=== PATIENT | male | born 1940 | race Caucasian/White ===

== ENCOUNTER 2017-09-30 22:15 | Inpatient (IN) | payer MEDICARE ==
--- NOTE | 2017-09-30 23:50 | CT ---
CT BRAIN NONCONTRAST: 09/30/17 HISTORY: 77-year-old male with altered mental status (somnolence) and dysarthria. FINDINGS: There is no midline shift or any other mass effect. There is no evidence of acute intracranial hemor rhage, large cortical infarct, obstructive hydrocephalus, or extraaxial fluid collection. The calvar ium is intact. IMPRESSION: No acute intracranial findings. alek [] POS: KAYLYNN
[2017-09-30] MEDS ORDERED: Enoxaparin Sodium 100 MG/ML SYRINGE ONE (23:56)
[2017-10-01] MEDS ORDERED: hydrALAZINE 20 MG/ML VIAL SLOW IVP PRN (00:08)
[2017-10-01 01:03] LABS: Troponin I 0.078 ng/mL (< 0.028)
[2017-10-01 01:40] VITALS: BMI 30.4
[2017-10-01] MEDS: Metoprolol Tartrate 50 MG TAB PO SCH ×2 (04:25→20:18)
--- NOTE | 2017-10-01 05:52 | HP ---
DATE OF ADMISSION: 10/01/2017 PRIMARY CARE PHYSICIAN: Dr. Etienne Vaz. CODE STATUS: FULL CODE. TIME OF EVALUATION: 12:00 a.m. CHIEF COMPLAINT: Left-sided weakness. HISTORY OF PRESENT ILLNESS: This is a 77-year-old male patient. The patient has past medical history of hyperlipidemia, hypertension, surgical history of double bypass 20 years ago, patient does not follow with primary care doctor, the patient is very compliant with medication. Patient came to the hospital after having left-sided weakness and having slurred speech. The symptoms were very brief, no clear triggers, no alleviating factors, symptoms were mild. By the time of my evaluation, no symptoms are present. The patient found to have atrial fibrillation on EKG, which is new for him. REVIEW OF SYSTEMS: Constitutional: No fever, no chills, no generalized weakness. Respiratory: No cough, no sputum production, or shortness of breath. Cardiovascular: No chest pain, no palpitation, no shortness of breath. Gastrointestinal: No nausea, no vomiting, no diarrhea, no abdominal pain. MANAGER CARD: Patient has left-sided weakness that was brief also slurred speech. Genitourinary: No burning with urination. Extremities: No leg swelling. All other systems reviewed were negative except for the findings mentioned above. PAST MEDICAL HISTORY: The patient has a history of hyperlipidemia, hypertension , coronary artery disease, status post CABG 20 years ago. PAST SURGICAL HISTORY: Bypass surgery 20 years ago. PSYCHIATRIC HISTORY: No previous psychiatric history. SOCIAL HISTORY: Drinks socially, rarely. No drugs. Patient smokes cigar weekly. FAMILY HISTORY: Reviewed and noncontributory for current presentation. ALLERGIES: No known drug allergies. MEDICATIONS: Please see medication reconciliation for details. PHYSICAL EXAMINATION: VITAL SIGNS: Blood pressure 145/83, heart rate 86, respiratory rate 18, temperature 98.3, oxygen saturation 94% on room air. GENERAL APPEARANCE: Alert, oriented in no acute distress. HEENT: Eyes normal conjunctivae, moist oral mucosa. Anicteric. NECK: No JVD. RESPIRATORY: Bilateral air entry. No rales, no wheezing. Symmetrical expansion. CARDIOVASCULAR: Normal rate, regular rhythm, no gallop. No edema. ABDOMEN: Soft, normal bowel sounds. MUSCULOSKELETAL: Baseline range of motion and strength. No tenderness. SKIN: Warm intact. No pallor, no rash, no redness. NEUROLOGIC: Baseline sensorium. No evidence of any new focal weakness. Baseline speech. Cranial nerves seems to be intact. PSYCHIATRIC: Good mood, no anxiety, oriented, optimal judgment. LABORATORY DATA: Reviewed. White count 7.3, hemoglobin 14.3, MCV 92, platelet count 186. Coagulation was reviewed. Patient has PT 15.6, INR 1.2, PTT of 29.2. Chemistry was reviewed. The patient has potassium of 4, sodium 140, chloride 103, carbon dioxide 25, anion gap 16, BUN 24, creatinine 1.57, but this is chronic. Patient has previous creatinine in the range of 1.7 to 1.5. GFR was 43. Glucose 140. Troponin 0.078. Beta natriuretic peptide 619. The rest of the labs were basically normal. Brain CT was done and showed no acute intracranial findings. EKG was discussed with performing physician from ER. Patient has atrial fibrillation with controlled ventricular response with a rate of 87 also showing T-wave abnormalities in anterolateral leads, possible left ventricular hypertrophy. ASSESSMENT AND PLAN: 1. New-onset atrial fibrillation. Patient's CHADS-VASc score is 3 points, patient is at [id number] risk of developing stroke, actually has presented with mild TIA symptoms. Patient would benefit from anticoagulation, have an extensive discussion regarding choices for anticoagulation. Patient will make a decision tomorrow what medication will be able to afford in at the point, he could be switched to oral anticoagulants. Cardiology for evaluation, patient already getting echo from stroke protocol. We will follow result, we will treat accordingly. CT head was negative. 2. Transient ischemic attack, patient presented with very short time period of neurological symptoms, they have disappeared. During my examination, neurological exam is totally normal. We will follow stroke protocol, further treatment depending on results. 3. Uncontrolled hypertension on presentation with systolic 145. We will allow permissive hypertension given neurological symptoms, reconcile home medications. 4. History of coronary artery disease status post coronary artery bypass graft. There is a mild elevation in troponin, could be a case of non-ST elevation myocardial infarction type 2 secondary to arrhythmia. Patient already received Lovenox, receive aspirin. He was on beta-blockers at home, we will trend troponins, we will treat accordingly. 5. Hyperlipidemia, low-cholesterol diet is advised. 6. Deep venous thrombosis prophylaxis. Patient is on Lovenox. [facility]
[2017-10-01 06:28] LABS: Troponin I 0.058 ng/mL (< 0.028)
[2017-10-01 08:26] LABS: #Eosinphils 0.2 thou/uL (0.0-0.7); #Lymphocytes 2.1 thou/uL (1.20-3.40); #Monocytes 0.6 thou/uL (0.11-0.59); #Neutrophils 4.2 thou/uL (1.40-6.50); %Basophils 0.5 % (0.0-1.0); %Eosinophils 3.2 % (0.0-10.0); %Lymphocytes 29.4 % (21.0-51.0); %Neutrophils 57.9 % (42.0-75.0); Hemoglobin 13.9 g/dL (14.0-18.0); Mean Corpuscular HGB CONC 33.9 g/dL (32.0-36.0); Mean Corpuscular Hemoglobin 32.7 pg (27.0-31.0); Mean Corpuscular Volume 96.4 fL (78.0-98.0); Mean Platelet Volume 7.8 fL (7.4-10.4); Platelet Count 171 thou/uL (130-400); Red Blood Cell (RBC) Count 4.27 mill/uL (4.70-6.10); White Blood Cell (WBC) Count 7.2 thou/uL (4.8-10.8)
[2017-10-01 08:50] LABS: Anion Gap 12 mmol/L (10-20); BUN (Urea Nitrogen) 22 mg/dL (8.4-25.7); Calc. Creatinine Clearance 65 mL/min (70-130); Calcium 9.3 mg/dL (7.8-10.44); Carbon Dioxide 26 mmol/L (23-31); Chloride 105 mmol/L (98-107); Estimated GFR-MDRD 47; Glucose 98 mg/dL (83-110); Potassium 4.1 mmol/L (3.5-5.1); Sodium 139 mmol/L (136-145)
[2017-10-01] MEDS ORDERED: Valsartan 80 MG TAB PO SCH (09:00)
[2017-10-01] MEDS ORDERED: Aspirin 325 mg Enteric Coated Tablet PO SCH ×2 (09:00)
--- NOTE | 2017-10-01 10:21 | ULT ---
CAROTID ARTERIAL DOPPLER ULTRASOUND: DATE: 10/01/17 COMPARISON: None. HISTORY: Transient ischemic attack. TECHNIQUE: Multiplanar Vega scale sonographic imaging of the arterial structures of the neck obtained with color flow and spectral analysis. FINDINGS: The crankshaft straightener reports that evaluation of the arterial structures is difficult due to vascular tortu osity and the patient's inability to extend the neck. Neither vertebral artery could be visualized/as sessed. Antegrade blood flow noted within the carotid system bilaterally. VESSEL PSV (CM/SEC) EDV (CM/SEC) Right CCA 75 29 Right ICA 42 15 Right ECA 45 8 Left CCA 97 21 Left ICA 69 21 Left ECA 60 10 ICA/CCA ratio is 0.6 on the right and 9.7 on the left. IMPRESSION: 1. No hemodynamically significant stenosis within the carotid system on either side on the basis of velocity criteria. 2. The vertebral arteries could not be assessed on this examination. If clinically warranted, a CT a ngiogram of the neck could be performed for full assessment. POS: KAYLYNN
--- NOTE | 2017-10-01 10:28 | MRI ---
MRI BRAIN WITHOUT CONTRAST: Date: 10/01/17 HISTORY: TIA, altered mental status, somnolence, and dysarthria. FINDINGS: Correlation made with previous day's CT scan. There are a few tiny foci of restricted diffusion in the posterior aspect of the right frontal lobe. There are changes of chronic small vessel ischemic disease in the periventricular white matter. The v entricular size is appropriate and the basilar cisterns are patent. No evidence of hemorrhage, midlin e shift, or abnormal extra-axial fluid collections are seen. IMPRESSION: A few acute tiny lacunar infarctions in the right cerebral hemisphere. POS: ISABELLAH
[2017-10-01] MEDS: Fenofibrate Nanocrystallized 145 MG TAB PO SCH (11:05)
[2017-10-01] MEDS: Ezetimibe 10 MG TAB PO SCH (11:05)
--- NOTE | 2017-10-01 11:13 | PDOC.PN ---
- Subjective Encounter Start Date: 10/01/17 (f/u stroke) Encounter Start Time: 11:11 Subjective: Pt denies any complaints except for being hungry. Denies any -: pain, difficulty moving or speaking. Reports problems from yesterday -: are resolved - Objective Vital Signs & Weight: Vital Signs (12 hours) Temp Pulse Pulse Resp BP BP Pulse Ox 10/01/17 09:20 85 161/90 H 10/01/17 07:55 97.9 F 88 20 10/01/17 07:38 97.4 F L 77 20 153/78 H 95 10/01/17 04:15 97.9 F 88 20 165/79 H 94 L 10/01/17 04:11 150 H 10/01/17 00:34 97.7 F 80 20 170/85 H 95 Pulse Ox 10/01/17 09:20 96 10/01/17 07:55 10/01/17 07:38 10/01/17 04:15 10/01/17 04:11 10/01/17 00:34 Weight Weight 240 lb 4.8 oz I&O: 09/30/17 10/01/17 10/02/17 06:59 06:59 06:59 Intake Total 240 Output Total 800 Balance -560 Result Diagrams: 10/01/17 05:17 10/01/17 05:17 EKG Reviewed by me: Yes (atrial fibrillation with rate 80's, brief 130's) Phys Exam - Physical Examination Constitutional: NAD Respiratory: no wheezing, no rhonchi faint rales left base Cardiovascular: no significant murmur, irregular Gastrointestinal: soft, non-tender, no distention, positive bowel sounds Musculoskeletal: no edema Neurological: non-focal, moves all 4 limbs Psychiatric: normal affect, A&O x 3 Skin: no rash Dx/Plan (1) Stroke Code(s): I63.9 - CEREBRAL INFARCTION, UNSPECIFIED Status: Acute Qualifiers: Laterality of affected vessel: right (2) CKD (chronic kidney disease) Code(s): N18.9 - CHRONIC KIDNEY DISEASE, UNSPECIFIED Status: Chronic Qualifiers: Chronic kidney disease stage: stage 3 (moderate) Qualified Code(s): N18.3 - Chronic kidney disease, stage 3 (moderate) (3) CAD (coronary artery disease) Code(s): I25.10 - ATHSCL HEART DISEASE OF [place] CORONARY ARTERY W/O ANG PCTRS Status: Chronic Qualifiers: Coronary Disease-Associated Artery/Lesion type: bypass graft (4) Atrial fibrillation Code(s): I48.91 - UNSPECIFIED ATRIAL FIBRILLATION Status: Acute (5) Dyslipidemia Code(s): E78.5 - HYPERLIPIDEMIA, UNSPECIFIED Status: Chronic (6) Hypertension Code(s): I10 - ESSENTIAL (PRIMARY) HYPERTENSION Status: Chronic Qualifiers: Hypertension type: essential hypertension Qualified Code(s): I10 - Essential (primary) hypertension - Plan * Stroke based on MRI - tiny lacunar infarcts right cerebral hemisphere - likely from underlying A Fib * Continue aspirin * d/c neuro consult given a fib, very small locations * A Fib - echo, cardiology consult. Pt asking about full anticoagulation and medication - states he does not want any medication that he cant drink alcohol or smoke * htn - continue home meds except for valsartan to allow for permissive htn * cad - continue aspirin, statin, beta-bertin * ckd - stage 3 and chronic by chart review * * dvt prophy -ambulatory * gi prophy - not indicated * code status full * * reviewed plan of care with patient and , no questions or further needs at end of eval.
[2017-10-01 12:39] LABS: Troponin I 0.053 ng/mL (< 0.028)
--- NOTE | 2017-10-01 18:19 | CON ---
DATE OF CONSULTATION: 10/01/2017 CONSULTING PHYSICIAN: Hospitalist Service. IMPRESSION: 1. Cardioembolic stroke into the right frontal region with transient left-sided weakness and slurred speech. 2. Atrial fibrillation. 3. Hypertension. 4. No carotid stenosis. PLAN: 1. Anticoagulation as per Dr. Singh's request. 2. The patient will be discharged home. HISTORY OF PRESENT ILLNESS: Mr. Grove is a 77-year-old gentleman who was sitting smoking a cigar. Al l of a sudden, his left arm started to jerk uncontrollably, could not hang onto the cigar. He starte d having some facial droop on the left and slurred speech. His reports this lasted 10-15 minute s. He went and relaxed for a bit, and then got up and went to the kitchen. The symptoms returned fo r about 10 minutes and then resolved again. He came in for evaluation. His MRI showed evidence of a n acute area of infarction in the right frontal region. His carotids and intracranial vessels were o therwise without any significant stenosis. His EKG showed evidence of atrial fibrillation. PAST MEDICAL HISTORY: Hypertension, coronary artery disease. PAST SURGICAL HISTORY: CABG. SOCIAL HISTORY: Smokes cigars. No alcohol abuse. ALLERGIES: None. FAMILY HISTORY: Noncontributory. REVIEW OF SYSTEMS: No complaint of headache, nausea, vomiting, vertigo, chest pain, shortness of al ath, palpitations. PHYSICAL EXAMINATION: GENERAL: He is a well-nourished elderly man in no distress. VITAL SIGNS: He had a pulse rate of 136 and an irregular pattern. HEENT: Pupils are equal and reactive. Conjunctivae clear. Oropharynx clear. NECK: Supple. EXTREMITIES: No cyanosis. NEUROLOGIC: He is alert and oriented. His speech is fluent and clear. Cranial nerves II-XII are in tact. Motor exam showed symmetric strength. There is no fix or drift. He can walk independently. No abnormal movements were present. IMPRESSION: A 77-year-old gentleman with atrial fibrillation and an event that sounds consistent wit h a cardioembolic event. I agree with your plan of care.
[2017-10-01] MEDS ORDERED: Rivaroxaban 15 MG TAB PO SCH (20:45)
[2017-10-01] MEDS ORDERED: Atorvastatin Calcium 40 MG TAB PO SCH (21:00)
[2017-10-01] MEDS ORDERED: Atorvastatin Calcium 20 MG TAB PO SCH (21:00)
[2017-10-02 05:12] LABS: Anion Gap 14 mmol/L (10-20); BUN (Urea Nitrogen) 18 mg/dL (8.4-25.7); Calc. Creatinine Clearance 71 mL/min (70-130); Calcium 9.6 mg/dL (7.8-10.44); Carbon Dioxide 23 mmol/L (23-31); Chloride 104 mmol/L (98-107); Estimated GFR-MDRD 52; Glucose 95 mg/dL (83-110); Sodium 137 mmol/L (136-145)
--- NOTE | 2017-10-02 05:28 | CON ---
DATE OF CONSULTATION: 10/01/2017 HISTORY OF PRESENT ILLNESS: Mr. Nato Grove is a 77-year-old white male admitted with TIA and stroke symptoms. He has history of coronary artery disease and in 01/2008, underwent off pump, CABG x2 with BARRETT to the LAD and saphenous vein graft to the diagonal. Since that time, he has done fairly well as continued to be followed in the office. He does continue to smoke a pipe and cigars. He has had problems with receiving his metoprolol over the last 3 weeks and actually ran out. He just received a prescription and was restarted on that. He was seen yesterday in the office and was doing well without any significant symptoms. He went home and was apparently smoking a cigar and he had 2 episodes of left-sided weakness and slurred speech. Each episode lasted 10-15 minutes. He came to the ER and was found to be in atrial fibrillation, which is new for him. When he was seen in the office yesterday, his rhythm was regular. He denies any chest discomfort or shortness of breath. PAST MEDICAL HISTORY: Hypertension, hyperlipidemia, coronary artery disease. OPERATIONS: CABG in 2007. MEDICATIONS: Zetia 10 mg daily, aspirin 325 daily, TriLipix 135 daily, metoprolol 75 mg b.i.d., valsartan 160 mg 1/2 tablet daily, simvastatin 40 at bedtime. SOCIAL HISTORY: He continues to smoke a pipe and cigars. He occasionally drinks. FAMILY HISTORY: Unremarkable. REVIEW OF SYSTEMS: Twelve-point review of systems unremarkable. PHYSICAL EXAMINATION: VITAL SIGNS: Blood pressure 183/86, pulse of 102. HEENT: PERRL. NECK: Supple. CHEST: Clear. CARDIAC: S1, S2 normal without any S3, S4 or murmurs. Rhythm is irregularly irregular. Carotid upstrokes normal without bruits. ABDOMEN: Normal bowel sounds, without tenderness, organomegaly. EXTREMITIES: Revealed no clubbing, cyanosis, or edema. NEUROLOGIC: Grossly intact. LABORATORY AND DIAGNOSTIC DATA: EKG reveals atrial fibrillation with nonspecific T-wave changes. Brain MRI reveals a few tiny lacunar infarctions in the right cerebral hemisphere. Carotid Doppler revealed no hemodynamically significant stenosis. Hemoglobin 13.9, hematocrit 41.1, white count 7200, platelets 171,000. INR 1.2. Sodium 140, potassium 4.0, chloride 103, carbon dioxide 25, BUN 24, creatinine 1.57, glucose 140. Troponin I 0.078. BNP 619.0. TSH is normal. Cholesterol 101, triglycerides 121, HDL 25, LDL 52. IMPRESSION: 1. Probable embolic cerebrovascular accident from atrial fibrillation. He was unable to get metoprolol for 3 weeks and this certainly may have precipitated his atrial fibrillation due to beta-bertin withdrawal. 2. Status post coronary artery bypass graft x2. 3. Left ventricular hypertrophy. 4. History of diastolic dysfunction. 5. Aortic valvular sclerosis. 6. Moderate mitral regurgitation. 7. Hypercholesterolemia, under good control. 8. Hypertension. 9. The patient continues to smoke pipes and cigars. 10. Chronic kidney disease. In review of his GFR, it is pretty much always below 50. His creatinine between 1.4-1.6. Recommendations with his current creatinine level and approaching 80, I feel will be best to be on Xarelto since his GFR is always under 50. He would need to be on a lower dose-15 mg daily. Samples will be provided for him, so he can check with this drug plan to see which medication may be more economical. He will be given a dose of Xarelto tonight and then starting tomorrow. Also, his aspirin needs to be reduced to 81 mg daily. Consideration in the future will be given to possible return to sinus rhythm; however, with his embolic events at present time, I would not wish to pursue that for at least 1-2 months. [facility]
[2017-10-02 08:04] VITALS: TEMP 97.3
[2017-10-02] MEDS: Ezetimibe 10 MG TAB PO SCH (08:31)
[2017-10-02] MEDS: Fenofibrate Nanocrystallized 145 MG TAB PO SCH (08:31)
[2017-10-02] MEDS ORDERED: Rivaroxaban 15 MG TAB PO SCH (09:00)
[2017-10-02] MEDS ORDERED: Aspirin 81 mg Enteric Coated Tablet PO SCH (09:00)
[2017-10-02] MEDS ORDERED: Metoprolol Tartrate 100 MG TAB PO SCH (09:00)
[2017-10-02 09:57] VITALS: BP 113/85
--- NOTE | 2017-10-04 21:24 | DIS ---
DATE OF DISCHARGE: 10/02/2017 DISCHARGE DISPOSITION: Home. FOLLOWUP: 1. Follow up with primary care physician, Dr. Vaz, in 1 week. 2. Follow up with Cardiology, Dr. Brayan Singh, in 3-4 weeks. 3. Follow up with Neurology, Dr. Santacruz, in 3-4 weeks. The patient was seen and examined on the day of discharge. Denies any new complaints. No chest pain , shortness of breath, palpitations reported. INPATIENT CONSULTANTS: 1. Cardiology, Dr. Brayan Singh. 2. Neurology, Dr. Santacruz. BRIEF HOSPITAL COURSE: The patient is a 77-year-old male with hypertension, hyperlipidemia, coronary artery disease, who presented to the hospital with left-sided weakness. Please note that the patien t continues to smoke. Please refer to the history and physical dated 10/01/2017 for further details. The patient was admitted to the hospital with the diagnosis of suspected CVA with new onset atrial fi brillation. He was started on anticoagulation. His metoprolol dose was increased to 100 mg twice a day. The patient was evaluated by Cardiology and Neurology. MRI of the brain showed a few acute tin y lacunar infarction in the right cerebral hemisphere. Echocardiogram showed left ventricular ejecti on fraction of 50% to 55% with moderate mitral regurgitation and mild to moderate tricuspid regurgita tion. Carotid Doppler was negative for hemodynamically significant stenosis. The risk not limited t o life threatening bleeding from anticoagulation was discussed with the patient. He stated lilliaman stevenson. DISCHARGE MEDICATIONS: Aspirin 81 mg daily, Xarelto 15 mg daily, Zocor 40 mg daily, valsartan 160 mg daily, fenofibric acid 135 mg daily, Zetia 10 mg daily. The patient was extensively counseled to quit tobacco. Total time coordinating the discharge of this patient was 33 minutes. FINAL DIAGNOSES: 1. Acute cerebrovascular accident, probably secondary to cardioembolic event. 2. New onset atrial fibrillation. The patient has been started on anticoagulation. 3. Hypertension. 4. Coronary artery disease, status post coronary artery bypass graft. 5. Hyperlipidemia. 6. Ongoing tobacco abuse. 7. Chronic normochromic normocytic anemia. 8. Chronic kidney disease, stage 3. 9. Elevated troponins, probably secondary to demand ischemia. 10. Obesity with a BMI of 30.4.
== END 2017-10-02 10:04 | disposition home or self-care (01) | DRG 65 ==
LOC: ERS 22:15 → 2SW 23:40 → OBSVTOIN 10-02 08:20
PROVIDERS: ADMIT Hospitalist; ATTEND Hospitalist
DX: I63.8 Other cerebral infarction (principal); G81.94 Hemiplegia, unspecified affecting left nondominant side; I24.8 Other forms of acute ischemic heart disease; R47.81 Slurred speech; E78.5 Hyperlipidemia, unspecified; I25.10 Atherosclerotic heart disease of native coronary artery without angina pectoris; I48.91 Unspecified atrial fibrillation; F17.210 Nicotine dependence, cigarettes, uncomplicated; I08.1 Rheumatic disorders of both mitral and tricuspid valves; Z95.1 Presence of aortocoronary bypass graft; D64.9 Anemia, unspecified; I12.9 Hypertensive chronic kidney disease with stage 1 through stage 4 chronic kidney disease, or unspecified chronic kidney disease; N18.3 Chronic kidney disease, stage 3 (moderate); E66.9 Obesity, unspecified; Z68.30 Body mass index [BMI] 30.0-30.9, adult; Z79.82 Long term (current) use of aspirin; Z79.899 Other long term (current) drug therapy; E78.00 Pure hypercholesterolemia, unspecified; R29.810 Facial weakness
CPT/HCPCS: 36415; 70450; 70551; 80048; 80061; 84484; 85025; 93005; 93306; 93880; 96372; G8978-GP-CK; G8979-GP-CK; G8980-GP-CK; G8987-GO-CH; G8988-GO-CH; G8989-GO-CH; G9162-GN-CH; G9163-GN-CH; J1650

== ENCOUNTER 2018-01-03 08:27 | Inpatient (IN) | payer MEDICARE ==
[2018-01-03 09:25] LABS: #Lymphocytes 1.5 thou/uL (1.20-3.40); #Monocytes 1.3 thou/uL (0.11-0.59); #Neutrophils 10.2 thou/uL (1.40-6.50); %Basophils 0.3 % (0.0-1.0); %Eosinophils 0.2 % (0.0-10.0); %Lymphocytes 11.4 % (21.0-51.0); %Monocytes 9.8 % (0.0-10.0); %Neutrophils 78.3 % (42.0-75.0); Hemoglobin 8.4 g/dL (14.0-18.0); Mean Corpuscular HGB CONC 33.7 g/dL (32.0-36.0); Mean Corpuscular Hemoglobin 34.4 pg (27.0-31.0); Mean Platelet Volume 8.5 fL (7.4-10.4); Platelet Count 240 thou/uL (130-400); RBC Distribution Width 13.4 % (11.5-14.5); Red Blood Cell (RBC) Count 2.43 mill/uL (4.70-6.10)
[2018-01-03 09:34] LABS: Base Excess-Venous -3.8 mmol/L (0 (+/- 2.5)); Bicarbonate (HCO3v) 21.2 mmol/L (1.0-85.0); CO2 Tension (PvCO2) 37.1 mmHg (41.0-51.0); Hemoglobin - Calc 8.3 g/dL (12.0-18.0); Lactate 5.56 mmol/L (0.50-2.20); O2 Tension (PvO2) 29.9 mmHg (35.0-45.0); Potassium 4.8 mmol/L (3.4-4.7); T. Carbon Dioxide 22.4 mmol/L (1.0-85.0); pH (Venous) 7.365 (7.35-7.45); vO2 Saturation-calc 55.3 % (94-98)
[2018-01-03 09:42] LABS: ALT (SGPT) 474 U/L (8-55); AST (SGOT) 820 U/L (5-34); Albumin 3.5 g/dL (3.4-4.8); Alkaline Phosphatase 35 U/L (40-150); Anion Gap 19 mmol/L (10-20); BUN (Urea Nitrogen) 56 mg/dL (8.4-25.7); Bilirubin, Total 1.5 mg/dL (0.2-1.2); Calc. Creatinine Clearance 0 mL/min (70-130); Calcium 8.7 mg/dL (7.8-10.44); Carbon Dioxide 18 mmol/L (23-31); Chloride 107 mmol/L (98-107); Estimated GFR-MDRD 23; Globulin 2.8 g/dL (2.4-3.5); Glucose 114 mg/dL (83-110); Protein, Total 6.3 g/dL (5.8-8.1); Sodium 139 mmol/L (136-145)
[2018-01-03] MEDS ORDERED: Pantoprazole 40 MG VIAL ONE (09:48)
[2018-01-03 10:05] LABS: CKMB 3.4 ng/mL (0-6.6)
[2018-01-03 10:09] LABS: Troponin I 0.422 ng/mL (< 0.028)
[2018-01-03] MEDS ORDERED: HUM PROTHROMBIN CPLX IV SCH (10:15)
[2018-01-03] MEDS ORDERED: HUMAN PROTHROMBIN COMPLX IV SCH ×2 (10:15→10:30)
[2018-01-03] MEDS ORDERED: [UNRECOGNIZED DRUG - OTHER] IV SCH (10:15)
[2018-01-03 10:20] LABS: Iron 26 ug/dL (65-175); Iron Binding Capacity, Total 395 mcg/dL (261-462); Prothrombin Time 38.6 SEC (12.0-14.7)
[2018-01-03] MEDS ORDERED: ADMIXTURE FEE IV SCH (10:30)
[2018-01-03] MEDS ORDERED: Phytonadione 10 MG/ML AMP SLOW IVP SCH (10:30)
--- NOTE | 2018-01-03 11:11 | RAD ---
SINGLE VIEW OF THE CHEST: COMPARISON: 09/30/17. HISTORY: Shortness of breath and throwing up blood. The patient had a stroke 3 months ago. FINDINGS: A single view of the chest shows an enlarged but stable cardiomediastinal silhouette. The patient is status post sternotomy. There are airspace opacities projecting over the right lung which may repre sent right-sided infiltrates. NO pleural effusion is seen. IMPRESSION: Opacity projecting over the right lung may represent right-sided infiltrates. POS: ISABELLAH
[2018-01-03] MEDS: Piperacillin/Tazobactam 2.25 GM in Sodium Chloride 0.9% 100 ML IVPB SCH ×2 (12:56→20:01)
[2018-01-03] MEDS ORDERED: Sodium Chloride 0.9% 1,000 ML IV SCH (13:15)
[2018-01-03] MEDS ORDERED: Pantoprazole 40 MG VIAL IVP SCH ×2 (13:30→21:00)
[2018-01-03 13:31] LABS: Troponin I 0.492 ng/mL (< 0.028)
[2018-01-03] MEDS: Pantoprazole 80 MG in Sodium Chloride 0.9% 100 ML IVP SCH ×2 (13:34→22:06)
[2018-01-03] MEDS ORDERED: Acetaminophen 500 MG TAB PO PRN (14:21)
[2018-01-03] MEDS ORDERED: Ondansetron HCl/PF 4 MG/2 ML Vial IVP PRN (14:21)
[2018-01-03] MEDS ORDERED: Ondansetron ODT 4 MG TAB PO PRN (14:21)
[2018-01-03] MEDS: Sodium Chloride 0.9% 1,000 ML IV SCH (14:50)
[2018-01-03] MEDS ORDERED: Digoxin 0.5 MG/2 ML AMP SLOW IVP SCH ×2 (15:00→17:45)
[2018-01-03] MEDS ORDERED: Sodium Chloride 0.9% 500 ML IVPB SCH ×2 (16:00→17:45)
[2018-01-03 17:18] LABS: Troponin I 0.565 ng/mL (< 0.028)
[2018-01-03 18:02] LABS: Hemoglobin 8.4 g/dL (14.0-18.0); Platelet Count 181 thou/uL (130-400)
--- NOTE | 2018-01-03 18:06 | CON ---
DATE OF CONSULTATION: 01/03/2018 REASON FOR CONSULTATION: AFib with RVR and melena. PRIMARY DIRECTOR TELEHEALTH: Dr. Brayan Singh. HISTORY OF PRESENT ILLNESS: Mr. Grove is a pleasant 77-year-old gentleman with history of coronary ar godfrey disease, status post bypass surgery 10 years ago who recently presented with melena. He also st ates he has had some hematemesis, although has resolved. His initial hemoglobin was 14 in September. His hemoglobin today was 8.4. He also was found to be in atrial fibrillation with RVR. He was not placed on a diltiazem due to blo od pressure in the 100s. He was placed on digoxin. No current chest pain or pressure. He does have mild palpitations. PAST MEDICAL HISTORY: CAD, hypertension, atrial fibrillation, hyperlipidemia, CAD status post bypass surgery. HOME MEDICATIONS: Include Zetia, Zocor, Trilipix, metoprolol, valsartan and Xarelto. SOCIAL HISTORY: Positive tobacco use, occasional alcohol use. REVIEW OF SYSTEMS: Ten point review of systems is reviewed and as above, otherwise negative. PHYSICAL EXAMINATION: VITAL SIGNS: Blood pressure 106/70, pulse 125, respirations 20. GENERAL: Patient is a pleasant male who is in no acute distress. The patient appears his stated age . NEUROLOGIC: The patient is alert and oriented times 3 with no focal neurologic deficits. HEENT: Sclerae without icterus. Mouth has moist mucous membranes with normal pallor. NECK: No JVD. Carotid upstroke brisk. No bruits bilaterally. LUNGS: Clear to auscultation with unlabored respirations. BACK: No scoliosis or kyphosis. CARDIAC: Irregularly irregular, tachycardic. ABDOMEN: Soft, nontender, nondistended. No peritoneal signs present. No hepatosplenomegaly. No ab normal striae. EXTREMITIES: 2+ femoral and 2+ dorsalis pedis pulses. No cyanosis, clubbing, or edema. SKIN: No gross abnormalities. PERTINENT LABS: Hemoglobin 8.4. White blood cell count 13. Troponin 0.422. IMPRESSION: 1. Atrial fibrillation with rapid ventricular response. 2. Gastrointestinal bleed. 3. Coronary artery disease. 4. Status post bypass surgery. 5. Atrial fibrillation. RECOMMENDATIONS: Mr. Grove's recent diagnosis of atrial fibrillation occurred in September. It is based o n anticoagulation therapy. At this point, we will stop anticoagulation treatment. We will monitor h is hemoglobin closely and transfuse as needed. I will give him a 500 mL bolus of fluids to increase his blood pressure. We would like to start low dose Cardizem IV for heart rate management. He has a previous stroke and is at high risk for a CVA.
--- NOTE | 2018-01-03 18:57 | CON ---
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 He has been healthy most of his life. This is his third hospitalization as per the patient. He has some black tarry stools now for almost 4 days and for 2 days. He complaints of difficulty breathing, though he tells me that he has been coughing some blood. It i s unclear whether it is vomitus or actually sputum. He is a smoker, smokes 2-pack full of tobacco on ce a week and 2 cigars maybe once or twice a week at most. Never smoke substantial cigars at any par ticular time. He said 6 months ago, he could do most things without getting markedly short of breath . For the last 24-48 hours, he was having some difficulty breathing, but no real chest pain, chills, or sweats. PAST MEDICAL HISTORY: Extensively outlined. Recent diagnosis of CVA, recent history of atrial fibri llation, history of hyperlipidemia, coronary artery disease. PAST SURGICAL HISTORY: Bypass 10 years ago. MEDICATIONS: Recent initiation of Xarelto 15 once a day, valsartan 160 a day, Zocor 40 a day, Lopres sor 100 a day, Zetia 100, aspirin 81. ALLERGIES: None. In the ER, he was running into fast SVT and started on Cardizem. He has received in the ER, Kcentra 2681 units, maximum dose according to the pharmacist and vitamin K 10 mg IV. In the ICU, he has had some difficulty breathing. He is on a Cardizem drip. Sats are 95% on 2 liter s, blood pressure 130/80, respiration 20, pulse 120. He is awake, responsive, otherwise. SOCIAL HISTORY: As noted, minimal tobacco. Alcohol none. FAMILY HISTORY: Unremarkable. REVIEW OF SYSTEMS: Ten-point negative. PHYSICAL EXAMINATION: GENERAL: He is awake, alert, responsive without any distress. VITAL SIGNS: Show pulse is 132 and irregular, sats 99% on 2 liters, blood pressure 120/80, respirati on 20. CHEST: Minimal rhonchi or crackles. CARDIAC: Supraventricular tachycardia. ABDOMEN: Distended, soft. EXTREMITIES: No edema. NEUROLOGIC: Awake, alert, responsive, in no distress, having no swelling. LABORATORY DATA: His INR surprisingly 4, his PT is 38. His liver functions markedly elevated. AST 820, ALT is 475. Troponin is elevated. He had normal liver function about 4 months ago at the time when he had his stroke. White count 13,000, H&H is 8 and 24, platelet count is 240. X-RAY FINDINGS: X-ray shows a right-sided pneumonia. Creatinine is elevated at 2.72. This also may be elevated compared to his previous lab report. His creatinine was 1.57 in September when he had the CV A. IMPRESSION: 1. Probably upper gastrointestinal bleed, probably aggravated by Xarelto. 2. Markedly abnormal liver function, etiology unclear, possibly shock liver. 3. Obesity. 4. Renal failure. 5. Pneumonia, probably aspiration. Some minimal tobacco abuse. 6. Supraventricular tachycardia. PLAN: Continue Cardizem. Await input from GI. Pulmonary rae, I have started him on empiric antibi otics for presumed aspiration. Adjust for his renal failure. We will follow. This is a consultation note of 70 minutes, in which 50% spent in direct patient care.
--- NOTE | 2018-01-03 19:31 | CON ---
DATE OF CONSULTATION: 01/03/2018 CHIEF COMPLAINT: Blood in stool. HISTORY OF PRESENT ILLNESS: Mr. Grove is a 77-year-old man who had a stroke back in September. He was sta rted on Xarelto at that time. A week ago he developed worsening dyspnea on minimal exertion. He als o started having black stools about once per daily over the last week. He has had no abdominal pain. He vomited red blood, 2 days ago and then a small amount yesterday. He has had no further vomiting since then. He came to the emergency room with shortness of breath and due to the bleeding. He has been on Xarelto since September as stated above. His last dose was last night. He has no chest pain cur rently. He has had no bowel movements today. His last bowel movement was yesterday. He was given K centra in the emergency room and admitted to the Intensive Care Unit and GI was consulted to evaluate GI bleed. PAST MEDICAL HISTORY: Stroke in 09/2017. He also developed atrial fibrillation and was started on X arelto at that time with a history of hypertension, hyperlipidemia, coronary artery disease. PAST SURGICAL HISTORY: Coronary artery bypass graft. FAMILY HISTORY: Negative for GI malignancies. SOCIAL HISTORY: Rare alcohol. He smokes a cigar occasionally. No drugs. ALLERGIES: No known drug allergies. MEDICATIONS: Prior to admission include valsartan, simvastatin, Xarelto, metoprolol, fenofibric acid as that may be aspirin 81 mg daily. In the hospital, he has been given Protonix 40 mg IV push and s tarted on Zosyn and diltiazem. REVIEW OF SYSTEMS: Negative x10 systems reviewed except as stated in history of present illness. PHYSICAL EXAMINATION: VITAL SIGNS: Temperature is 97.3, pulse 89, blood pressure 136/70, oxygen saturations 93% on room ai r. GENERAL: He is in no acute distress. He is alert and oriented x3. HEENT: Eyes have no scleral icterus. Oropharynx is clear, without lesions. NECK: No cervical or supraclavicular lymphadenopathy. LUNGS: Clear to auscultation bilaterally. HEART: Tachycardic S1, S2. ABDOMEN: Soft, nontender, nondistended. Bowel sounds are present. Rectal exam reveals melenic stoo l in the rectal vault. EXTREMITIES: No lower extremity edema. NEUROLOGIC: Cranial nerves are grossly intact. LABORATORY DATA: White blood cell count 13.0, hemoglobin is 8.4 down from 13.9 in September, platelets 24 0. INR is 4.0 with a PTT of 48. Creatinine is 2.72 up from baseline of 1.33 back in September. Iron 26, TIBC 395, ferritin 159, bilirubin 1.5, AST 820, ALT 474, alkaline phosphatase 35. Previously, his liver tests were normal. Albumin 3 .5. IMPRESSION: 1. Upper gastrointestinal bleed with hematemesis and melena. He has had one melenic stool per day o arlette the last week and then 2 episodes of hematemesis. One of them was yesterday and one was the day before. He has had no actual overt blood loss today; however, he does have melenic stool in the rect al vault. He is being transfused and his hemodynamic status appears to be improving. He is alert an d oriented now. 2. Atrial fibrillation with rapid ventricular response. 3. Acute renal failure. 4. Ischemic hepatopathy with a sharp rise in the transaminases with AST twice the ALT. 5. Coagulopathy secondary to Xarelto. His last dose was last night. His INR is elevated at 4.0. G iven the acute renal failure, this will take longer to metabolize. 6. Anemia of acute blood loss. RECOMMENDATIONS: 1. Transfusion. 2. Proton pump inhibitor drip. 3. Monitor in ICU. 4. We will give him time to metabolize the Xarelto. He does not appear to be bleeding extremely armen skly given that he has had one black bowel movement per day for the last week and no hematemesis or m grace output today. I will plan upper endoscopy in 2-3 days. Given that with his acute renal failur e and significant elevation of the INR with the Xarelto, I would lean towards 3 days with likely perf orming endoscopy on Thursday. If he shows more rapid signs of upper bleeding, then we could potenti ally perform upper endoscopy sooner. 5. I will check an acute viral hepatitis panel. However, I think this is ischemic hepatopathy.
--- NOTE | 2018-01-03 20:26 | HP ---
DATE OF ADMISSION: 01/03/2018 PRIMARY CARE PROVIDER: Dr. Vaz. PRIMARY ROLL CHANGER: Dr. Brayan Singh. CHIEF COMPLAINT: Vomiting blood and blood in the stool. HISTORY OF PRESENT ILLNESS: This is a 77-year-old male, who presents to [facility] Emergency Department complaining of approximately 1-week history of black stools with vomiting bloo d over the last 2 days. The patient admits to taking Xarelto, which he was prescribed after an episo de of atrial fibrillation and a CVA in 09/2017. The patient states he has been compliant with his ch ronic medication regimen, but had been noticing blood in his stool for approximately 1 week. The pat ient had progressive weakness and had difficulty getting up out of a chair or out of the bed, experie ncing dizziness and feel like he was going to fall. The patient admits to some abdominal discomfort with the black stool; however, this is now resolved. The patient denied any recent trauma, injury, t ravel history, diarrhea or fever. The patient denies any history of GI bleeds or gastric ulcers. In the emergency department, the patient underwent general evaluation with a hemoglobin showing a value of 8.4 down from previous measured value of 14 on 10/01/2017. The patient received Kcentra, intrave nous Protonix, diltiazem, and intravenous normal saline x1 liter. The patient was also noted with co ncomitant atrial fibrillation with rapid ventricular response with heart rates in the 120s to 130s. The patient was transferred to the critical care unit for further evaluation. PAST MEDICAL HISTORY: 1. Atrial fibrillation, on chronic Xarelto therapy. 2. History of ischemic cerebrovascular accident without residual deficit. 3. Hypertension. 4. Hyperlipidemia. 5. Tobacco use. 6. Coronary artery disease. PAST SURGICAL HISTORY: Status post coronary artery bypass grafting. CURRENT MEDICATIONS: 1. Ezetimibe 10 mg p.o. daily. 2. Fenofibric acid 135 mg p.o. daily. 3. Zocor 40 mg p.o. daily. 4. Valsartan 160 mg p.o. daily. 5. Enteric-coated aspirin 81 mg p.o. daily. 6. Lopressor 100 mg p.o. b.i.d. 7. Xarelto 15 mg p.o. daily. ALLERGIES: No known drug allergies. FAMILY HISTORY: No inheritable diseases per patient report. SOCIAL HISTORY: The patient resides in [place], [place]. . Smokes cigars weekly. Occasional a lcohol use, no illicit drug use. REVIEW OF SYSTEMS: The following complete review of systems was negative, unless otherwise mentioned in the HPI or below: Constitutional: Weight loss or gain, ability to conduct usual activities. Sk in: Rash, itching. Eyes: Double vision, pain. ENT/Mouth: Nose bleeding, neck stiffness, pain, te nderness. Cardiovascular: Palpitations, dyspnea on exertion, orthopnea. Respiratory: Shortness of breath, wheezing, cough, hemoptysis, fever or night sweats. Gastrointestinal: Poor appetite, abdom inal pain, heartburn, nausea, vomiting, constipation, or diarrhea. Genitourinary: Urgency, frequenc y, dysuria, nocturia. Musculoskeletal: Pain, swelling. Neurologic/Psychiatric: Anxiety, depressio n. Allergy/Immunologic: Skin rash, bleeding tendency. Otherwise negative except as stated per HPI. PHYSICAL EXAMINATION: VITAL SIGNS: Currently, blood pressure 106/71, pulse 137, respiratory rate 31, temperature 98.2 degr ees Fahrenheit, O2 saturation 95% on 2 liters per minute by nasal cannula. GENERAL APPEARANCE: This is a 77-year-old male, alert and oriented x3, pleasant, pale appe aring, in mild respiratory distress. HEENT: Pupils are equal, round, and reactive to light and accommodation. Extraocular muscles are in tact. No scleral icterus, no conjunctival injection. Nares patent. OP is clear. Teeth in fair rep air. NECK: Supple, no cervical adenopathy, no thyromegaly, no carotid bruits, no JVD appreciated. Cervic al spine with full active and passive range of motion. No meningeal signs appreciated. CHEST: Diminished breath sounds in the bases bilaterally. CARDIOVASCULAR: S1, S2 with irregular rate and rhythm with tachycardia. ABDOMEN: Obese, soft, nontender, nondistended. Landmarks are difficult to palpate due to patient's body habitus. No rebound or guarding noted. EXTREMITIES: Warm and dry with fair turgor. No clubbing, cyanosis or asymmetric edema appreciated. Pulses palpable distally at the dorsalis pedis, posterior tibial, and popliteal arteries bilaterall y. Capillary refill less than 2 seconds. NEUROLOGIC: Cranial nerves II-XII are grossly intact. No focal or lateralizing signs appreciated. The patient not observed ambulatory during this exam. PERTINENT LABORATORY AND X-RAY FINDINGS: Sodium 143, potassium 4.8, chloride 109, CO2 of 18, BUN 56, creatinine 2.72, estimated GFR of 23. Venous lactic acid 5.56. Serum iron level 26, TIBC 395, ferr itin 160, AST 820, ALT 474, alkaline phosphatase 35. Troponin I ranged between 0.422 to 0.492. CBC showed a white blood cell count of 13.0, hemoglobin 8.4, hematocrit 25, MCV 102, platelet count 240 w ith 78% neutrophils. PT 38.6, INR 4.0, PTT 48.5. Portable chest x-ray dated 01/03/2018 showed incre ased opacity of the right lung. EKG dated 01/03/2018 by my interpretation shows atrial fibrillation with rapid ventricular response, heart rates in the 120s. Normal R-wave progression noted in the pre cordial leads. Normal axis. ST-T wave changes noted in the lateral and inferior leads. ASSESSMENT AND PLAN: 1. Acute gastrointestinal bleed. The patient will be admitted to the critical care unit. We will c ontinue Protonix 40 mg IV q.12 hours. We will consult GI Service for further evaluation after stabil ization. Avoid anticoagulation and Xarelto. N.p.o. except for medications and sips of water. We wi ll continue intravenous normal saline at 100 mL per hour. Continue serial H&H monitoring. 2. Acute blood loss anemia secondary to #1. 3. Status post transfusion of 1 unit of packed red blood cells. Continue serial H&H monitoring and transfuse as clinically indicated. Transfuse 1 unit of fresh frozen plasma. 4. Hypotension. Suspect multifactorial given patient's acute blood loss. We will continue IV fluid hydration. Avoid antihypertensive medications. Serial blood pressure monitoring in the critical ca re unit. 5. Atrial fibrillation with rapid ventricular response. Suspect multifactorial given patient's acut e blood loss anemia and history of atrial fibrillation. We will initiate digoxin 0.25 mg IV x1 now, then 0.125 mg IV daily. Hold Cardizem infusion due to hypotension. Continue to manage underlying et iology as outlined in #1 and #2. Consult Cardiology service. 6. Acute kidney injury. Avoid nephrotoxic agents and contrast media. Continue IV fluids as outline d previously. Serial creatinine monitoring. 7. Elevated troponin I. Suspect demand ischemia of the myocardium in the context of atrial fibrilla tion with rapid ventricular response. Continue serial monitoring. Cardiology consultation. 8. Transaminitis. Suspect liver shock in conjunction with acute GI bleed in addition to hypotension . We will continue to trend LFTs. No current evidence to suggest obstructive process. 9. Prophylaxis. Sequential compression devices while in bed. Protonix 40 mg IV q.12 hours. 10. Code status is FULL. Surrogate medical decision maker is patient's spouse.
[2018-01-03] MEDS ORDERED: Furosemide 40 MG/4 ML VIAL ONE (23:19)
[2018-01-03] MEDS ORDERED: Furosemide 40 MG/4 ML VIAL SLOW IVP SCH (23:30)
[2018-01-03 23:34] LABS: Actual Bicarbonate (HCO3a) 14.1 mEq/L (22-28); Base Excess (BEa) -15.1 mEq/L (-2.0 to +3.0); CO2 Tension 47.9 mmHg (35.0-45.0); Calcium, Ionized 1.12 mmol/L (1.12-1.30); Carboxyhemoglobin (COHb) 1.5 gm% (0.0-3.0); Hemoglobin (Hb) 9.8 g/dL (14.0-18.0); Potassium - ABG Lab 5.47 mmol/L (3.70-5.30)
[2018-01-03 23:40] LABS: pH, Arterial 7.09 (7.35-7.45)
[2018-01-03 23:41] LABS: ALV-art Gradient 529.125 (0-20); Puncture Site RRA
[2018-01-04] MEDS: Sodium Chloride 0.9% 1,000 ML IV SCH ×3 (02:26→22:26)
[2018-01-04 05:12] LABS: INR-International Normal Ratio 2.4; PTT 39.1 SEC (22.9-36.1); Prothrombin Time 26.1 SEC (12.0-14.7)
[2018-01-04 05:19] LABS: Anion Gap 22 mmol/L (10-20); BUN (Urea Nitrogen) 65 mg/dL (8.4-25.7); Calc. Creatinine Clearance 29 mL/min (70-130); Calcium 8.4 mg/dL (7.8-10.44); Carbon Dioxide 11 mmol/L (23-31); Chloride 113 mmol/L (98-107); Estimated GFR-MDRD 18; Glucose 155 mg/dL (83-110); Potassium 5.3 mmol/L (3.5-5.1); Sodium 141 mmol/L (136-145)
[2018-01-04 05:27] LABS: Hemoglobin 8.6 g/dL (14.0-18.0); Mean Corpuscular Hemoglobin 33.1 pg (27.0-31.0); Mean Platelet Volume 9.2 fL (7.4-10.4); Platelet Count 209 thou/uL (130-400); RBC Distribution Width 14.6 % (11.5-14.5); Red Blood Cell (RBC) Count 2.61 mill/uL (4.70-6.10); White Blood Cell (WBC) Count 15.2 thou/uL (4.8-10.8)
[2018-01-04 05:28] LABS: Hypochromia SLIGHT = 6-15 cells (100X) (0-5/hpf); Lymphocytes 5 % (21-51); MDiff Complete? YES; Monocytes 3 % (0-10); Neutrophil 92 % (42-75); PLT Morphology Comment Appears Adequate
[2018-01-04] MEDS: Piperacillin/Tazobactam 2.25 GM in Sodium Chloride 0.9% 100 ML IVPB SCH ×3 (05:36→22:17)
[2018-01-04 05:40] LABS: HBSAg Index 0.21 S/CO (0-0.99); Hep A IgM AB Non-Reactive (NonReactive); Hep A IgM S/CO 0.08 S/CO (0-0.79); Hep B Surf Ag Non-Reactive S/CO (NonReactive); Hep C IgG Ab Non-Reactive (NonReactive); Hepatitis B Core IGM Abs Non-Reactive (NonReactive)
--- NOTE | 2018-01-04 07:31 | RAD ---
AP VIEW OF THE CHEST: INDICATION: History of intubation. COMPARISON: Prior study dated 01/03/18. IMPRESSION: Worsening opacification of the right lung and left lower lobe may reflect worsening edema or pneumoni a. Oxygen tubing overlies the left upper chest wall. No pneumothorax is evident. No acute osseous abnormality is noted. POS: BH
--- NOTE | 2018-01-04 07:59 | PRG ---
DATE OF SERVICE: 01/04/2018 He is a 77-year-old gentleman who was placed on noninvasive ventilation last night with progressive r espiratory failure. PHYSICAL EXAMINATION: VITAL SIGNS: His blood pressure is 90/58, pulse 130 irregular, sats 100%. His I's and O's are 2466 in, 650 out. GENERAL: Awake, responsive, complaining of dry mouth. CHEST: Chest reveals bilateral rhonchi and crackles, I did not hear any wheezing. CARDIAC: SVT. ABDOMEN: Soft. LABORATORY: H&H 8 and 27, platelet count is 209. His INR is 2.4. His pO2 is 124, pCO2 46.570. BUN and creatinine 65 and 3.3. Troponin is 0.56. IMPRESSION: 1. Respiratory failure. 2. Right-sided pneumonia, probably aspiration. 3. Gastrointestinal bleed. 4. Atrial fibrillation. 5. Renal failure. PLAN: Echo is being ordered. Continue supportive care, continue noninvasive ventilation. If condit ion gets worse he is going to be intubated. This is a one-half hour critical care time.
[2018-01-04] MEDS: Pantoprazole 80 MG in Sodium Chloride 0.9% 100 ML IVP SCH ×2 (08:00→18:34)
[2018-01-04] MEDS: Digoxin 0.5 MG/2 ML AMP SLOW IVP SCH (08:18)
--- NOTE | 2018-01-04 10:49 | CON ---
DATE OF CONSULTATION: 01/04/2018 HISTORY OF PRESENT ILLNESS: Mr. Grove is a 77-year-old white male who was admitted for an upper GI bl eed. He has been on Xarelto in the past and this has been discontinued. We are now being consulted for his acute kidney injury. Please note the patient has received volume repletion. He has received Kcentra as well as normal saline x1 liter. Currently, he is on maintenance IV. He is also on salt poor albumin. We were referred to further evaluate his acute kidney injury. REVIEW OF SYSTEMS: Positive for hematemesis. Positive for melena. Positive for cough. No shortnes s of breath, no syncopal episode, no productive cough, no fever or chills. Decreased appetite, decre ased energy level. No abdominal pain, no headache, no joint pains, no new skin rash, no dysuria, no urinary frequency. MEDICATIONS: Salt poor albumin 5% - 12.5 grams IV daily, DuoNeb q.4 hours p.r.n., diltiazem drip as adjusted, Levaquin 750 mg q.2 days, Solu-Medrol 40 mg IV b.i.d., Zofran p.r.n., Protonix 80 mg daily, Zosyn 2.25 grams IV q.8 hours, normal saline 100 mL per hour. PAST MEDICAL HISTORY: 1. Status post cerebrovascular accident. 2. History of atrial fibrillation. 3. Coronary artery disease. 4. Status post upper gastrointestinal bleed, recent diagnosis. PAST SURGICAL HISTORY: 1. Status post cardiac catheterization. 2. Status post coronary artery bypass graft. SOCIAL HISTORY: Patient is and lives in [place]. One child. 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 Education: Master's degree in theology. Smoke cigars and pipe for several years. Occasional alcohol. Status post blood transfusion. No IV drug abuse. ALLERGIES: None. TRAUMA: None. IMMUNIZATIONS: He is not up to date. HOSPITALIZATIONS: Please see past medical history. FAMILY HISTORY: No family history of end-stage renal disease. PHYSICAL EXAMINATION: VITAL SIGNS: Blood pressure is currently at 88/58, heart rate is 132, respiratory rate 12, pulse ox 100%. GENERAL: Patient is awake, supine, comfortable, obese. SKIN: Adequate turgor. HEENT: Pale conjunctivae, anicteric sclerae. NECK: No neck mass, no carotid bruits, no JVD. CHEST: No deformities. LUNGS: Decreased breath sounds. HEART: Tachycardic, no murmur, no gallops or rubs. ABDOMEN: Globular, soft, nontender. EXTREMITIES: No edema. NEUROLOGIC: Moving all extremities. No tremors, no asterixis, no ataxia. LABORATORY DATA: Of 01/04/2018, white count 15.2, hemoglobin 8.6. Sodium 141, potassium 5.3, chlori de 113, carbon dioxide 11, BUN 65, creatinine 3.33, glucose 155, calcium is 8.4. Troponin I 0.565. On 01/03/2018, creatinine 2.69. ASSESSMENT AND PLAN: 1. Acute kidney injury - consider a hemodynamically mediated renal dysfunction secondary to his jaspal rointestinal bleed. The possibility of a superimposed acute tubular necrosis remains. For this reas on, we will review urinalysis and urine chemistries with this patient. Please note a renal ultrasoun d has also been ordered. For the moment, agree with current management. Continue to optimize hemody namics. P.r.n. blood transfusion. Continue normal saline. Should the metabolic acidosis worsen, we could consider placing this patient on isotonic bicarbonate. We will recheck a base met again later tonight. 2. Gastrointestinal bleed - continue supportive care, p.r.n. blood transfusion for possible upper GI endoscopy. Please note, the patient's Xarelto has been discontinued. Valsartan is also on hold.
[2018-01-04] MEDS ORDERED: Digoxin 0.5 MG/2 ML AMP SLOW IVP SCH ×3 (11:15→17:30)
[2018-01-04] MEDS: Sodium Chloride 0.9% 500 ML IV SCH ×2 (14:00→15:00)
--- NOTE | 2018-01-04 14:14 | PRG ---
DATE OF SERVICE: 01/04/2018. SUBJECTIVE: Mr. Grove has no abdominal pain. He complains of thirst. He has a Ventimask in place an d otherwise has no acute complaints. PHYSICAL EXAMINATION: VITAL SIGNS: Temperature 98.4, pulse 130s, blood pressure 90s/50s. GENERAL: He is in no acute distress. LUNGS: Clear to auscultation bilaterally. HEART: Tachycardic, no murmur. ABDOMEN: Soft, nontender, nondistended. Bowel sounds are present. EXTREMITIES: No lower extremity edema. IMPRESSION: 1. Upper gastrointestinal bleed, presenting with melena and hematemesis. He has had no bowel moveme nt since admission. Bleeding appears to have stopped for now. He received 1 unit transfusion yester day. His hemoglobin is stable at 8.6. 2. Toxicity from Xarelto with supratherapeutic INR in the setting of acute renal failure. I will ta ke longer for him to metabolize the Xarelto. It does not appear to be ongoing bleeding at this point . We can plan upper endoscopy, likely on Thursday assuming his respiratory and cardiac status have improved at that point. 3. Atrial fibrillation with rapid ventricular response. 4. Ischemic hepatopathy. RECOMMENDATIONS: 1. Proton pump inhibitor drip. Again, if there is no further bleeding tomorrow and his hemoglobin i s stable, he can likely change this to a q.12 hours dosing. 2. Start clear liquids today and advance his diet as he tolerates tomorrow. 3. Again, we will plan EGD when his heart rate and respiratory status have improved and after he has had more time for the Xarelto to metabolize.
--- NOTE | 2018-01-04 15:16 | ULT ---
RENAL ULTRASOUND: History: Renal failure. FINDINGS: Real-time imaging of the right and left kidneys were performed. Right kidney measures 11.3 and left k idney 11.6 cm in size. In the midpole region of the right kidney is a 4.5 cm cyst and on the left nelly e there is an upper pole cyst measuring in the 3 cm range. Bladder was empty at the time of this exam ination. There is a Horta catheter present. IMPRESSION: No evidence of obstruction of either kidney. Bilateral renal cysts. POS: KAYLYNN
[2018-01-04 15:26] LABS: Bilirubin Negative (Negative); Blood, Urine Large (Negative); Clarity TURBID (Clear); Glucose, Urine (Dipstick) Negative (Negative); Leukocyte Moderate (Negative); Nitrite Negative (Negative); Protein, Urine (Dipstick) 100 mg/dL (Neg-Trace); Specific Gravity, Urine 1.023 (1.002-1.036); pH, Urine 5.5 (5.0-9.0)
[2018-01-04 15:35] LABS: Bacteria/HPF None Seen HPF (None Seen)
[2018-01-04 15:37] LABS: Pathc Cast-AUWi Flag 11.71 (0-2.49); Yeast-AUWi Flag 1240.5 (0-25.0)
[2018-01-04 15:54] LABS: RBC/HPF GREATER THAN 50-TNTC HPF (0-3)
[2018-01-04 15:55] LABS: Hyaline Casts/LPF 0-3 HYALINE CAST LPF (0-3 Hyaline); Other Casts/LPF None Seen LPF (0-3 Hyaline); Yeast-All Forms None Seen HPF (None Seen)
[2018-01-04 15:56] LABS: Crystals/HPF 2+ URIC ACID HPF (Negative)
[2018-01-04] MEDS ORDERED: Digoxin 0.5 MG/2 ML AMP ONE (16:41)
[2018-01-04] MEDS ORDERED: Furosemide 40 MG/4 ML VIAL ONE (16:42)
[2018-01-04] MEDS ORDERED: Furosemide 40 MG/4 ML VIAL SLOW IVP SCH (16:45)
[2018-01-04 18:53] LABS: Anion Gap 16 mmol/L (10-20); BUN (Urea Nitrogen) 70 mg/dL (8.4-25.7); Calc. Creatinine Clearance 32 mL/min (70-130); Calcium 8.3 mg/dL (7.8-10.44); Carbon Dioxide 19 mmol/L (23-31); Chloride 113 mmol/L (98-107); Estimated GFR-MDRD 20; Glucose 130 mg/dL (83-110); Potassium 4.5 mmol/L (3.5-5.1); Sodium 143 mmol/L (136-145)
--- NOTE | 2018-01-04 20:43 | PDOC.PN ---
- Subjective Encounter Start Date: 01/04/18 Encounter Start Time: 20:10 Subjective: f/u for acute GI bleed, A-fib RVR and acute hypoxic resp failure. -: Remains in A-fib on current Cardizem gtt. Hgb stable in 8 range. -: BiPAP NIMV currently. No new complaints. - Objective Resuscitation Status: Resuscitation Status FULL:Full Resuscitation MAR Reviewed: Yes Vital Signs & Weight: Vital Signs (12 hours) Temp Pulse Pulse Resp BP Pulse Ox 01/04/18 19:14 99.0 F 107 H 27 H 108/55 L 100 01/04/18 19:00 99.0 F 100 01/04/18 18:45 112 H 01/04/18 18:44 108 H 24 H 100 01/04/18 18:07 110 H 01/04/18 16:45 99.1 F 146 H 122 H 31 H 101/57 L 01/04/18 16:28 98.4 F 126 H 34 H 111/72 01/04/18 16:00 99.1 F 01/04/18 14:15 100 01/04/18 14:12 146 H 28 H 100 01/04/18 12:47 146 H 01/04/18 12:00 98.4 F 01/04/18 10:15 116 H 24 H 100 01/04/18 10:00 99 F Weight Weight 247 lb 5.738 oz Most Recent Monitor Data Heart Rate from ECG 113 NIBP 108/55 NIBP BP-Mean 72 Respiration from ECG 21 SpO2 100 I&O: 01/03/18 01/04/18 01/05/18 06:59 06:59 06:59 Intake Total 2466 931.4 Output Total 660 1195 Balance 1806 -263.6 Result Diagrams: 01/04/18 15:15 01/04/18 18:22 Additional Labs: Laboratory Tests 01/03/18 01/03/18 01/03/18 09:08 09:10 12:56 WBC 13.0 H Hgb 8.4 L INR 4.0 Potassium Carbon Dioxide BUN Creatinine Lactic Acid 4.0 H Hepatitis A IgM Ab Hep Bs Antigen Hep B Core IgM Ab Hepatitis C Antibody 01/03/18 01/04/18 01/04/18 17:51 04:27 04:27 WBC Hgb 8.4 L INR 2.4 Potassium 5.3 H Carbon Dioxide 11 L BUN 65 H Creatinine 3.33 H Lactic Acid Hepatitis A IgM Ab Hep Bs Antigen Hep B Core IgM Ab Hepatitis C Antibody 01/04/18 01/04/18 04:27 04:27 WBC Hgb 8.6 L INR Potassium Carbon Dioxide BUN Creatinine Lactic Acid Hepatitis A IgM Ab Non-Reactive Hep Bs Antigen Non-Reactive Hep B Core IgM Ab Non-Reactive Hepatitis C Antibody Non-Reactive Radiology Reviewed by me: Yes (PCXR - worsening edema bilat; Renal sono - negative for obstruction) EKG Reviewed by me: Yes (Tele - A-fib in 110's) Phys Exam - Physical Examination alert, nods and states a few words, BiPAP mask in place HEENT: PERRLA, sclera anicteric, oral pharynx no lesions Neck: no nodes, no JVD, supple, full ROM diminished in bases tachycardic Cardiovascular: no significant murmur, irregular Gastrointestinal: soft, non-tender, no distention, positive bowel sounds Musculoskeletal: pulses present, edema present Neurological: normal sensation, moves all 4 limbs Psychiatric: normal affect, A&O x 3 Skin: normal turgor, cap refill <2 seconds Deviation from normal: Horta with gross hematuria Dx/Plan (1) Acute GI bleeding Code(s): K92.2 - GASTROINTESTINAL HEMORRHAGE, UNSPECIFIED Status: Acute Comment: Suspect upper source given hematemesis, melena, plan for endoscopy in 48h if hemodynamically stabilizing, serial H/H, avoid anticoagulation and NSAIDs (2) Acute blood loss anemia Code(s): D62 - ACUTE POSTHEMORRHAGIC ANEMIA Status: Acute Comment: s/p 1u PRBC's, H/H stable currently, continue serial H/H trending, see #1 above (3) Acute respiratory failure with hypoxia Code(s): J96.01 - ACUTE RESPIRATORY FAILURE WITH HYPOXIA Status: Acute Comment: BiPAP NIMV, Duonebs, Solumedrol, Zosyn (4) Atrial fibrillation with RVR Code(s): I48.91 - UNSPECIFIED ATRIAL FIBRILLATION Status: Acute Comment: Rate variable, continue Diltiazem gtt, Digoxin IV (5) HAYLEE (acute kidney injury) Code(s): N17.9 - ACUTE KIDNEY FAILURE, UNSPECIFIED Status: Acute Comment: Suspect multifactorial given hypotension, hypoperfusion, GI bleed, avoid nephrotoxic meds and limit contrast exposure (6) Hypotension Status: Acute Comment: Persistent, likely multifactorial given the above conditions, hold all antihypertensives, IVF's low-volume (7) Transaminitis Code(s): R74.0 - NONSPEC ELEV OF LEVELS OF TRANSAMNS & LACTIC ACID DEHYDRGNSE Status: Acute Comment: Due to liver shock, serial LFT's (8) Demand ischemia of myocardium Code(s): I24.8 - OTHER FORMS OF ACUTE ISCHEMIC HEART DISEASE Status: Acute Comment: Continue supportive mgmt as outlined above, no anticoagulants or NSAIDs - Plan continue antibiotics, social work professor, respiratory therapy, DVT proph w/SCDs Continue critical support -: Continue low-dose Cardizem gtt -: Digoxin IV daily -: Avoid anticoagulants and NSAIDs -: AM lab: CMP, CBC * Continue Protonix gtt * Monitor UOP given gross hematuria, consider Urology evaluation
[2018-01-05] MEDS: Pantoprazole 80 MG in Sodium Chloride 0.9% 100 ML IVP SCH ×2 (04:12→16:42)
[2018-01-05 04:24] LABS: INR-International Normal Ratio 1.7; PTT 35.6 SEC (22.9-36.1); Prothrombin Time 20.4 SEC (12.0-14.7)
[2018-01-05 04:29] LABS: Anion Gap 11 mmol/L (10-20); BUN (Urea Nitrogen) 71 mg/dL (8.4-25.7); Calc. Creatinine Clearance 34 mL/min (70-130); Calcium 8.5 mg/dL (7.8-10.44); Carbon Dioxide 22 mmol/L (23-31); Chloride 111 mmol/L (98-107); Estimated GFR-MDRD 22; Glucose 143 mg/dL (83-110); Potassium 4.3 mmol/L (3.5-5.1); Sodium 140 mmol/L (136-145)
[2018-01-05 04:30] LABS: ALT (SGPT) 584 U/L (8-55); AST (SGOT) 348 U/L (5-34); Albumin 3.2 g/dL (3.4-4.8); Alkaline Phosphatase 31 U/L (40-150); Bilirubin, Direct 0.7 mg/dL (0.1-0.3); Bilirubin, Total 1.4 mg/dL (0.2-1.2); Protein, Total 5.5 g/dL (5.8-8.1)
[2018-01-05 04:38] LABS: Band 13 % (5-11); Hemoglobin 8.4 g/dL (14.0-18.0); Lymphocytes 7 % (21-51); MDiff Complete? YES; Mean Corpuscular HGB CONC 32.8 g/dL (32.0-36.0); Mean Corpuscular Hemoglobin 32.2 pg (27.0-31.0); Mean Corpuscular Volume 98.1 fL (78.0-98.0); Mean Platelet Volume 8.8 fL (7.4-10.4); Monocytes 2 % (0-10); Neutrophil 78 % (42-75); PLT Morphology Comment Appears Adequate; Platelet Count 130 thou/uL (130-400); RBC Distribution Width 15.2 % (11.5-14.5); Red Blood Cell (RBC) Count 2.62 mill/uL (4.70-6.10); White Blood Cell (WBC) Count 13.3 thou/uL (4.8-10.8)
[2018-01-05] MEDS: Piperacillin/Tazobactam 2.25 GM in Sodium Chloride 0.9% 100 ML IVPB SCH (05:16)
[2018-01-05 06:03] LABS: Digoxin 1.61 ng/mL (0.8-2.0)
--- NOTE | 2018-01-05 08:28 | PRG ---
DATE OF SERVICE: 01/05/2018 This morning, he is better. He is less short of breath. PHYSICAL EXAMINATION: VITAL SIGNS: His pulse is 109, temperature is 98, sats are 98% on Ventimask, blood pressure 110/60. GENERAL: He says he is feeling better, still coughing, sputum is clear. CHEST: Decreased breath sounds, no wheezing. CARDIAC: Supraventricular tachycardia. ABDOMEN: Distended. EXTREMITIES: No edema. LABORATORY DATA: White count 13,000, H&H 8 and 25, platelet count 130. INR is 1.7. Creatinine is 2 .8, BUN is 71. His ALT is decreased to 584. Urine is bloody probably from Xarelto. X-ray shows extensive right-sided pneumonia. IMPRESSION: 1. Respiratory failure, probably aspiration pneumonia. 2. Supraventricular tachycardia. 3. Gastrointestinal bleed. 4. Atrial fibrillation. 5. Renal failure. 6. Abnormal liver function tests, probably ischemic. PLAN: Switch him over to nasal O2. Continue antibiotics, PT, nutrition. I will keep him in the ICU for another 24 hours. One-half hour critical care time.
--- NOTE | 2018-01-05 09:07 | PRG ---
DATE OF SERVICE: 01/05/2018 SUBJECTIVE: Mr. Grove is a 77-year-old white male who was seen by the Renal Service for his acute kid howard injury. He was noted to be hypotensive and was admitted due to an acute respiratory distress sec ondary to the possibility of a pneumonia. He was also hypotensive and volume repletion was given. B lood pressure is much improved this morning. No complaints. No chest pain or shortness of breath. OBJECTIVE: VITAL SIGNS: Blood pressure is 107/72, heart rate 103, respiratory rate 19, pulse ox 99%, currently on BiPAP. GENERAL: Awake, alert, comfortable, not in overt distress. SKIN: Adequate turgor. HEENT: Slightly pale conjunctivae, anicteric sclerae. NECK: No neck mass, no carotid bruits, no JVD. CHEST: No deformities. LUNGS: Clear breath sounds. HEART: Normal sinus rhythm. No murmur, no gallops, no rubs. ABDOMEN: Globular, soft, nontender, no masses. EXTREMITIES: No edema, no deformities. MEDICATIONS: 01/05/2018 - Reviewed. LABORATORY DATA: 01/05/2018 - Sodium 140, potassium 4.3, chloride 111, carbon dioxide 22, BUN 71, cr eatinine 2.82, glucose 143, calcium 8.5, troponin I 0.565, albumin 3.2. Urinalysis shows no pigmente d granular casts, protein 100. Urine sodium less than 20. ASSESSMENT AND PLAN: 1. Acute kidney injury - consider hemodynamically mediated renal dysfunction. Empiric volume replet ion. Continue to optimize hemodynamics. The patient has received IV hydration yesterday. There is no indication for any dialytic intervention. Urine sediment is suggestive of a prerenal picture 2. Shortness of breath, multifactorial etiology. Possibility of pneumonia is being entertained. In addition, the patient has had a renal ultrasound which showed no evidence of obstruction - inciden gabino findings of bilateral renal cysts.
[2018-01-05] MEDS: ALPRAZolam 0.25 MG TAB PO PRN ×2 (09:12→20:47)
[2018-01-05] MEDS: Digoxin 0.5 MG/2 ML AMP SLOW IVP SCH (09:12)
--- NOTE | 2018-01-05 09:19 | RAD ---
PORTABLE CHEST: History: Respiratory distress. Comparison: Prior day's study. FINDINGS: Heart size is enlarged. There are post op sternotomy changes. The right lung opacification shows very minimal improvement as compared to the prior examination. Parenchymal changes in the left base are s table. IMPRESSION: Essentially stable exam with very minimal improvement to some of the right sided alveolar lung change . POS: [facility]
[2018-01-05] MEDS: Piperacillin/Tazobactam 3.375 GM in Sodium Chloride 0.9% 100 ML IVPB SCH ×2 (12:13→18:19)
--- NOTE | 2018-01-05 15:48 | PRG ---
DATE OF SERVICE: 01/05/2018. SUBJECTIVE: Mr. Grove has had no bowel movement since admission. He is requiring BiPAP, now. He has had no abdominal pain and is tolerating clear liquids. OBJECTIVE: VITAL SIGNS: Temperature is 98.2, pulse has been 104-116 range, blood pressure 87/56. GENERAL: He is in no acute distress. He is alert and oriented x3, has a BiPAP on. LUNGS: Clear to auscultation bilaterally. CARDIOVASCULAR: Heart tachycardic and irregular. ABDOMEN: Soft, nontender. Bowel sounds are present. EXTREMITIES: No lower extremity edema. LABORATORY DATA: Hemoglobin is stable at 8.4. INR is 1.7 today. Creatinine 2.82, bilirubin 1.4, T 348, ALT 584, alkaline phosphatase 31. IMPRESSION: 1. Upper gastrointestinal bleed. 2. Coagulopathy secondary to toxicity from Xarelto. 3. Anemia of acute blood loss. His hemoglobin has been stable and he has had no further overt bleed ing since he has been here. INR is still elevated. 4. Acute renal failure. It will take longer to metabolize his Xarelto with the acute renal failure. 5. Atrial fibrillation with rapid ventricular response. 6. Respiratory failure, now requiring BiPAP. RECOMMENDATIONS: 1. We will defer endoscopy until his cardiopulmonary status is significantly improved. Currently, oscar clemons is still tachycardic with hypotension and requiring BiPAP. There is no overt bleeding and his hemo globin has remained stable. 2. Advance to a full liquid diet.
--- NOTE | 2018-01-05 17:31 | PDOC.PN ---
- Subjective Encounter Start Date: 01/05/18 Encounter Start Time: 16:35 Subjective: f/u acute resp failure requiring BiPAP and persistent A-fib RVR on Cardizem -: No new requirement for more PRBC's. - Objective Resuscitation Status: Resuscitation Status FULL:Full Resuscitation MAR Reviewed: Yes Vital Signs & Weight: Vital Signs (12 hours) Temp Pulse Resp Pulse Ox 01/05/18 16:00 98.7 F 01/05/18 14:54 92 01/05/18 14:51 104 H 31 H 99 01/05/18 12:00 98 F 01/05/18 10:47 114 H 01/05/18 10:46 108 H 27 H 99 01/05/18 09:12 126 H 01/05/18 08:00 98.2 F 96 01/05/18 06:50 110 H 01/05/18 06:46 103 H 19 99 Weight Weight 247 lb 5.738 oz Most Recent Monitor Data Heart Rate from ECG 104 NIBP 99/48 NIBP BP-Mean 65 Respiration from ECG 25 SpO2 91 I&O: 01/04/18 01/05/18 01/06/18 06:59 06:59 06:59 Intake Total 2466 2903.4 1160 Output Total 660 2950 575 Balance 1806 -46.6 585 Result Diagrams: 01/05/18 04:08 01/05/18 04:08 Additional Labs: Laboratory Tests 01/03/18 01/03/18 01/03/18 09:08 09:08 09:10 WBC 13.0 H Hgb 8.4 L INR 4.0 Potassium Carbon Dioxide BUN Creatinine Lactic Acid AST 820 H ALT 474 H Digoxin Hepatitis A IgM Ab Hep Bs Antigen Hep B Core IgM Ab Hepatitis C Antibody 01/03/18 01/03/18 01/04/18 12:56 17:51 04:27 WBC Hgb 8.4 L INR 2.4 Potassium Carbon Dioxide BUN Creatinine Lactic Acid 4.0 H AST ALT Digoxin Hepatitis A IgM Ab Hep Bs Antigen Hep B Core IgM Ab Hepatitis C Antibody 01/04/18 01/04/18 01/04/18 04:27 04:27 04:27 WBC 15.2 H Hgb 8.6 L INR Potassium 5.3 H Carbon Dioxide 11 L BUN 65 H Creatinine 3.33 H Lactic Acid AST ALT Digoxin Hepatitis A IgM Ab Non-Reactive Hep Bs Antigen Non-Reactive Hep B Core IgM Ab Non-Reactive Hepatitis C Antibody Non-Reactive 01/04/18 01/05/18 01/05/18 15:15 04:08 04:08 WBC Hgb 8.0 L INR 1.7 Potassium Carbon Dioxide BUN Creatinine Lactic Acid AST ALT Digoxin 1.61 Hepatitis A IgM Ab Hep Bs Antigen Hep B Core IgM Ab Hepatitis C Antibody 01/05/18 04:08 WBC Hgb INR Potassium Carbon Dioxide BUN Creatinine Lactic Acid AST 348 H ALT 584 H Digoxin Hepatitis A IgM Ab Hep Bs Antigen Hep B Core IgM Ab Hepatitis C Antibody Radiology Reviewed by me: Yes (PCXR - minimal improvement in R lung opacification) EKG Reviewed by me: Yes (Tele - A-fib RVR in 105's) Phys Exam - Physical Examination BiPAP NIMV, alert, responsive HEENT: PERRLA, sclera anicteric, oral pharynx no lesions Neck: no nodes, no JVD, supple, full ROM diminished bilaterally, few scattered rhonchi S1, S2, tachycardic Cardiovascular: no significant murmur, no rub, irregular obese Gastrointestinal: soft, non-tender, no distention, positive bowel sounds mild LE edema bilat Musculoskeletal: pulses present Neurological: normal sensation, moves all 4 limbs Psychiatric: A&O x 3 Skin: no rash, normal turgor, cap refill <2 seconds Dx/Plan (1) Acute GI bleeding Code(s): K92.2 - GASTROINTESTINAL HEMORRHAGE, UNSPECIFIED Status: Acute Comment: Suspect upper source given hematemesis, melena, plan for endoscopy if hemodynamically stabilizing, serial H/H, avoid anticoagulation and NSAIDs (2) Acute blood loss anemia Code(s): D62 - ACUTE POSTHEMORRHAGIC ANEMIA Status: Acute Comment: s/p 1u PRBC's, H/H stable currently, continue serial H/H trending, see #1 above (3) Acute respiratory failure with hypoxia Code(s): J96.01 - ACUTE RESPIRATORY FAILURE WITH HYPOXIA Status: Acute Comment: BiPAP NIMV, Duonebs, Solumedrol, Zosyn, still requiring BiPAP (4) Atrial fibrillation with RVR Code(s): I48.91 - UNSPECIFIED ATRIAL FIBRILLATION Status: Acute Comment: Rate variable, titrate Diltiazem gtt, Digoxin IV (5) HAYLEE (acute kidney injury) Code(s): N17.9 - ACUTE KIDNEY FAILURE, UNSPECIFIED Status: Acute Comment: Suspect multifactorial given hypotension, hypoperfusion, GI bleed, avoid nephrotoxic meds and limit contrast exposure (6) Hypotension Status: Acute Comment: Persistent, likely multifactorial given the above conditions, hold all antihypertensives, IVF's low-volume (7) Transaminitis Code(s): R74.0 - NONSPEC ELEV OF LEVELS OF TRANSAMNS & LACTIC ACID DEHYDRGNSE Status: Acute Comment: Due to liver shock, serial LFT's, improved (8) Demand ischemia of myocardium Code(s): I24.8 - OTHER FORMS OF ACUTE ISCHEMIC HEART DISEASE Status: Acute Comment: Continue supportive mgmt as outlined above, no anticoagulants or NSAIDs - Plan continue antibiotics, PT/OT, social worker delinquency prevention, respiratory therapy, DVT proph w/ SCDs Continue critical support -: BiPAP NIMV dependent currently -: Continue Duonebs, Zosyn, Solumedrol -: Continue Cardizem gtt for rate control -: AM lab: BMP, CBC, LFT's * PCXR in am
[2018-01-05] MEDS: Sodium Chloride 0.9% 1,000 ML IV SCH (19:27)
[2018-01-06] MEDS: Piperacillin/Tazobactam 3.375 GM in Sodium Chloride 0.9% 100 ML IVPB SCH ×5 (00:32→23:44)
[2018-01-06 04:15] LABS: #Lymphocytes 0.9 thou/uL (1.20-3.40); #Monocytes 0.5 thou/uL (0.11-0.59); #Neutrophils 14.3 thou/uL (1.40-6.50); %Eosinophils 0.1 % (0.0-10.0); %Lymphocytes 5.5 % (21.0-51.0); %Monocytes 3.4 % (0.0-10.0); Hemoglobin 9.1 g/dL (14.0-18.0); Mean Corpuscular HGB CONC 32.8 g/dL (32.0-36.0); Mean Corpuscular Hemoglobin 32.2 pg (27.0-31.0); Mean Corpuscular Volume 98.2 fL (78.0-98.0); Mean Platelet Volume 9.2 fL (7.4-10.4); Platelet Count 164 thou/uL (130-400); RBC Distribution Width 15.2 % (11.5-14.5); Red Blood Cell (RBC) Count 2.82 mill/uL (4.70-6.10); White Blood Cell (WBC) Count 15.8 thou/uL (4.8-10.8)
[2018-01-06 04:20] LABS: INR-International Normal Ratio 1.5; PTT 30.8 SEC (22.9-36.1); Prothrombin Time 17.9 SEC (12.0-14.7)
[2018-01-06 04:36] LABS: ALT (SGPT) 503 U/L (8-55); AST (SGOT) 143 U/L (5-34); Albumin 3.1 g/dL (3.4-4.8); Alkaline Phosphatase 34 U/L (40-150); Anion Gap 11 mmol/L (10-20); BUN (Urea Nitrogen) 72 mg/dL (8.4-25.7); Bilirubin, Direct 0.9 mg/dL (0.1-0.3); Bilirubin, Total 1.5 mg/dL (0.2-1.2); Calc. Creatinine Clearance 41 mL/min (70-130); Calcium 8.3 mg/dL (7.8-10.44); Carbon Dioxide 22 mmol/L (23-31); Chloride 110 mmol/L (98-107); Estimated GFR-MDRD 27; Glucose 135 mg/dL (83-110); Potassium 4.2 mmol/L (3.5-5.1); Protein, Total 5.6 g/dL (5.8-8.1); Sodium 139 mmol/L (136-145)
[2018-01-06] MEDS: Digoxin 0.5 MG/2 ML AMP SLOW IVP SCH (08:11)
[2018-01-06] MEDS: ALPRAZolam 0.25 MG TAB PO PRN ×2 (08:11→14:43)
[2018-01-06] MEDS: Fluticasone Propionate Nasal Spray 16 gm Bottle NASAL SCH ×2 (08:21→21:34)
[2018-01-06] MEDS: Sodium Chloride 0.65% Nasal 44 ML BOT EA NARE SCH ×3 (08:22→21:31)
--- NOTE | 2018-01-06 08:22 | PRG ---
DATE OF SERVICE: 01/06/2018 He remains on a 50% Ventimask. Sats are 98%. He told me his nose has been broken multiple times wit hout ability to breathe through the nose. He has mouth-breathed for most of his life. He was on BiP AP all night. PHYSICAL EXAMINATION: VITAL SIGNS: His sats are 94, pulse is 100, blood pressure 130/80. CHEST: Chest reveals rhonchi, crackles, right greater than left. CARDIAC: Supraventricular tachycardia. ABDOMEN: Soft. EXTREMITIES: No edema. NEUROLOGICAL: Examination otherwise unremarkable. He is awake, alert, responsive. LABORATORY: His echo shows severe mitral regurgitation. His white count is down to 15,000, H&H 9 and 27, platelet count 64, creatinine 2.3, much improved. L iver function is better. IMPRESSION: 1. Right-sided pneumonia, aspiration. 2. Renal failure, better. 3. Supraventricular tachycardia. 4. Severe mitral regurgitation. PLAN: Nasal spray has been initiated. Continue antibiotics, PT, supportive care. I will follow. One-half hour critical care time.
--- NOTE | 2018-01-06 08:34 | RAD ---
SINGLE VIEW OF THE CHEST: COMPARISON: 01/05/18. HISTORY: Ventilated patient with respiratory failure. FINDINGS: A single view of the chest shows an enlarged but stable cardiomediastinal silhouette. The patient is status post sternotomy. Diffused mixed alveolar/interstitial opacities are seen in the lungs, right greater than left. These are unchanged compared to the prior exam. IMPRESSION: Stable exam. POS: [facility]
--- NOTE | 2018-01-06 08:41 | PRG ---
DATE OF SERVICE: 01/06/2018 SUBJECTIVE: Mr. Grove is a 77-year-old white male who was admitted for an upper GI bleed. We are fol lowing this patient for his acute kidney injury that was hemodynamically mediated. He was also hypot ensive at that time. He also was diagnosed to have possible aspiration pneumonia. He has also devel oped a rapid atrial fibrillation. Currently on IV Cardizem. Upper GI endoscopy is on hold due to the hemodynamic instability in the last few days. This morning he feels a little bit nauseous. He is still coughing some productive phlegm. PHYSICAL EXAMINATION: VITAL SIGNS: Blood pressure 110/66, heart rate 103, respiratory rate 27, pulse ox 90%. GENERAL: Awake, obese, in mild distress. SKIN: Adequate turgor. HEENT: He has slightly pale conjunctivae, anicteric sclerae. NECK: No neck mass, no carotid bruits, no JVD. CHEST: No deformities. LUNGS: Decreased breath sounds with occasional wheezing. HEART: Tachycardic. No murmur, no gallops or rubs. ABDOMEN: Globular, soft, nontender, no masses. EXTREMITIES: No edema. MEDICATIONS: 01/06/2018 - Reviewed. LABORATORY DATA: 01/06/2018 - White count 15.8, hemoglobin 9.1, hematocrit 27.7. Sodium 139, potass ium 4.2, chloride 110, carbon dioxide 22, BUN 72, creatinine 2.34. AST 143, ALT 503. Albumin 3.1. ASSESSMENT AND PLAN: 1. Acute kidney injury - hemodynamically mediated renal dysfunction. Continue to optimize hemodynam ics. I have decided to start him on salt poor albumin 25 grams IV q.6 for the next 3 days to further optimize his hemodynamics. 2. Upper gastrointestinal bleed - stable. Gastroenterology following, holding off on upper GI endos copy for the moment. 3. Aspiration pneumonia on antibiotics. Pulmonary is following. Overall, I agree with current management.
[2018-01-06] MEDS ORDERED: Pantoprazole 80 MG, Admixture Fee 1 EACH in Sodium Chloride 0.9% 100 ML IVP SCH (09:00)
[2018-01-06] MEDS: Albumin 25% 25 GM/100 ML BOT IVPB SCH ×3 (11:23→23:44)
[2018-01-06] MEDS ORDERED: traMADol HCl 50 MG TAB PO PRN (11:53)
--- NOTE | 2018-01-06 14:20 | PRG ---
DATE OF SERVICE: 01/06/2018 SUBJECTIVE: Mr. Grove is tired of being in bed, and otherwise, has no acute complaints. He is tolera ting liquid diet. OBJECTIVE: VITAL SIGNS: His temperature is 97.8, pulse 99, blood pressure 94/59. GENERAL: He is in no acute distress. He is alert. HEART: Tachycardic and irregular. LUNGS: Clear to auscultation bilaterally. ABDOMEN: Soft, nontender, nondistended, bowel sounds are present. EXTREMITIES: No lower extremity edema. LABORATORY DATA: White blood cell count 15.8, hemoglobin 9.1, platelets 164. INR 1.5. Creatinine 2 .34, bilirubin 1.5, AST 143, ALT 503, alkaline phosphatase 34. IMPRESSION: 1. Anemia secondary to acute gastrointestinal blood loss and upper gastrointestinal bleed. He has h ad no further overt bleeding and his hemoglobin is stable. 2. Coagulopathy secondary to toxicity from Xarelto in the setting of acute renal failure. 3. Atrial fibrillation with rapid ventricular response. 4. Ischemic hepatopathy. RECOMMENDATIONS: 1. Transition to pantoprazole twice daily dosing. 2. Advance diet. 3. We will eventually plan upper endoscopy after his cardiopulmonary status is significantly improve d. There is no urgency to this now as there is no active bleeding.
[2018-01-06] MEDS: Sodium Chloride 0.9% 1,000 ML IV SCH (14:44)
[2018-01-06] MEDS ORDERED: Digoxin 0.5 MG/2 ML AMP SLOW IVP SCH (16:30)
--- NOTE | 2018-01-06 18:07 | PDOC.PN ---
- Subjective Encounter Start Date: 01/06/18 Encounter Start Time: 17:50 Subjective: f/u for resp failure, PNA, A-fib RVR on BiPAP NIMV and Cardizem -: Remains dependent on BiPAP currently. Nsg reports pt anxious most -: of the day. - Objective Resuscitation Status: Resuscitation Status FULL:Full Resuscitation MAR Reviewed: Yes Vital Signs & Weight: Vital Signs (12 hours) Temp Pulse Resp Pulse Ox 01/06/18 16:37 103 H 01/06/18 15:22 103 H 01/06/18 15:20 111 H 38 H 92 L 01/06/18 15:00 97.8 F 01/06/18 11:00 97.8 F 01/06/18 10:41 103 H 01/06/18 10:40 103 H 33 H 97 01/06/18 08:11 115 H 01/06/18 07:00 97.8 F 01/06/18 06:56 115 H 01/06/18 06:55 115 H 31 H 93 L Weight Weight 247 lb 5.738 oz Most Recent Monitor Data Heart Rate from ECG 90 NIBP 111/58 NIBP BP-Mean 75 Respiration from ECG 22 SpO2 93 I&O: 01/05/18 01/06/18 01/07/18 06:59 06:59 06:59 Intake Total 2903.4 3765.3 2846 Output Total 2950 2045 635 Balance -46.6 1720.3 2211 Result Diagrams: 01/06/18 03:37 01/06/18 03:37 Additional Labs: Laboratory Tests 01/03/18 01/03/18 01/03/18 09:08 09:08 09:10 WBC 13.0 H Hgb 8.4 L INR 4.0 Potassium Carbon Dioxide BUN Creatinine Lactic Acid AST 820 H ALT 474 H Digoxin Hepatitis A IgM Ab Hep Bs Antigen Hep B Core IgM Ab Hepatitis C Antibody 01/03/18 01/03/18 01/04/18 12:56 17:51 04:27 WBC Hgb 8.4 L INR 2.4 Potassium Carbon Dioxide BUN Creatinine Lactic Acid 4.0 H AST ALT Digoxin Hepatitis A IgM Ab Hep Bs Antigen Hep B Core IgM Ab Hepatitis C Antibody 01/04/18 01/04/18 01/04/18 04:27 04:27 04:27 WBC 15.2 H Hgb 8.6 L INR Potassium 5.3 H Carbon Dioxide 11 L BUN 65 H Creatinine 3.33 H Lactic Acid AST ALT Digoxin Hepatitis A IgM Ab Non-Reactive Hep Bs Antigen Non-Reactive Hep B Core IgM Ab Non-Reactive Hepatitis C Antibody Non-Reactive 01/04/18 01/05/18 01/05/18 15:15 04:08 04:08 WBC Hgb 8.0 L INR 1.7 Potassium Carbon Dioxide BUN Creatinine Lactic Acid AST ALT Digoxin 1.61 Hepatitis A IgM Ab Hep Bs Antigen Hep B Core IgM Ab Hepatitis C Antibody 01/05/18 04:08 WBC Hgb INR Potassium Carbon Dioxide BUN Creatinine Lactic Acid AST 348 H ALT 584 H Digoxin Hepatitis A IgM Ab Hep Bs Antigen Hep B Core IgM Ab Hepatitis C Antibody Radiology Reviewed by me: Yes (PCXR - diffuse interstitial changes R>L) EKG Reviewed by me: Yes (Tele - A-fib in 80-90's) Phys Exam - Physical Examination alert, nods and speaks a few words through BiPAP mask HEENT: PERRLA, sclera anicteric, oral pharynx no lesions Neck: no nodes, no JVD, supple, full ROM diminished in bibasilar segments Respiratory: no rhonchi S1, S2 Cardiovascular: no significant murmur, no rub, gallop, irregular Gastrointestinal: soft, non-tender, no distention, positive bowel sounds Musculoskeletal: pulses present, edema present Neurological: normal sensation, moves all 4 limbs anxious Skin: normal turgor, cap refill <2 seconds Deviation from normal: Horta with hematuria Dx/Plan (1) Acute GI bleeding Code(s): K92.2 - GASTROINTESTINAL HEMORRHAGE, UNSPECIFIED Status: Acute Comment: Suspect upper source given hematemesis, melena, plan for endoscopy if hemodynamically stabilizing, serial H/H, avoid anticoagulation and NSAIDs (2) Acute blood loss anemia Code(s): D62 - ACUTE POSTHEMORRHAGIC ANEMIA Status: Acute Comment: s/p 1u PRBC's, H/H stable currently, continue serial H/H trending, see #1 above, stabilizing (3) Acute respiratory failure with hypoxia Code(s): J96.01 - ACUTE RESPIRATORY FAILURE WITH HYPOXIA Status: Acute Comment: BiPAP NIMV, Duonebs, Solumedrol, Zosyn, still requiring BiPAP (4) Atrial fibrillation with RVR Code(s): I48.91 - UNSPECIFIED ATRIAL FIBRILLATION Status: Acute Comment: Rate variable, titrate Diltiazem gtt, Digoxin IV (5) HAYLEE (acute kidney injury) Code(s): N17.9 - ACUTE KIDNEY FAILURE, UNSPECIFIED Status: Acute Comment: Suspect multifactorial given hypotension, hypoperfusion, GI bleed, avoid nephrotoxic meds and limit contrast exposure (6) Hypotension Status: Acute Comment: Persistent, likely multifactorial given the above conditions, hold all antihypertensives, IVF's low-volume (7) Transaminitis Code(s): R74.0 - NONSPEC ELEV OF LEVELS OF TRANSAMNS & LACTIC ACID DEHYDRGNSE Status: Acute Comment: Due to liver shock, serial LFT's, improving slowly (8) Demand ischemia of myocardium Code(s): I24.8 - OTHER FORMS OF ACUTE ISCHEMIC HEART DISEASE Status: Acute Comment: Continue supportive mgmt as outlined above, no anticoagulants or NSAIDs - Plan plan discussed w/ family, continue antibiotics, PT/OT, social worker, respiratory therapy, DVT proph w/SCDs Continue rate-control strategy for A-fib -: Wean off BiPAP when resp status stabilizing -: Serial H/H -: Continue Levaquin/Zosyn -: Wean Solumedrol * AM lab: CMP, CBC, Digoxin level
[2018-01-06 20:30] LABS: Actual Bicarbonate (HCO3a) 19.3 mEq/L (22-28); Base Excess (BEa) -8.2 mEq/L (-2.0 to +3.0); CO2 Tension 48.9 mmHg (35.0-45.0); Carboxyhemoglobin (COHb) 1.7 gm% (0.0-3.0); Hemoglobin (Hb) 9.2 g/dL (14.0-18.0); Potassium - ABG Lab 4.46 mmol/L (3.70-5.30)
[2018-01-06] MEDS ORDERED: Furosemide 100 MG/10 ML VIAL SLOW IVP SCH (20:30)
[2018-01-06] MEDS ORDERED: Dextrose 5% in Water 1,000 ML IV SCH (20:30)
[2018-01-06] MEDS ORDERED: Propofol 1,000 MG/100 ML VIAL IV ONE (20:32)
[2018-01-06] MEDS ORDERED: Midazolam HCl 2 mg/2 ml Vial ONE (20:32)
[2018-01-06] MEDS ORDERED: Lacri-Lube Opth Oint 3.5 GM TUBE EA EYE PRN (20:33)
[2018-01-06] MEDS ORDERED: Propofol 1,000 MG/100 ML VIAL IV PRN (20:37)
[2018-01-06] MEDS ORDERED: Propofol BOLUS 1,000 MG/100 ML VIAL IV PRN (20:37)
[2018-01-06] MEDS ORDERED: Fentanyl BOLUS 250 ML IVPB PRN (20:37)
[2018-01-06] MEDS ORDERED: fentaNYL Citrate/PF 2,000 MCG in Sodium Chloride 0.9% 60 ML IV SCH (20:37)
[2018-01-06] MEDS ORDERED: Lorazepam 2 MG/ML VIAL SLOW IVP PRN (20:37)
[2018-01-06] MEDS ORDERED: DISCONTINUE PREVIOUS NARCOTIC PAIN MEDICATIONS AND BENZODIAZEPINES FS SCH (20:37)
[2018-01-06] MEDS ORDERED: Ventilator Sedation Protocol 1 EACH FS SCH (20:45)
[2018-01-06 20:46] LABS: Hemoglobin 8.8 g/dL (14.0-18.0); Platelet Count 189 thou/uL (130-400)
--- NOTE | 2018-01-06 21:05 | PRG ---
DATE OF SERVICE: 01/06/2018 SERVICE: Pulmonary Medicine. INTERVAL HISTORY: The patient is doing very poorly this evening. I got a come- quick call. I came into the ICU and found the patient who was visibly dyspneic on BiPAP. He had hemoptysis, which was frothy and red in appearance. He had an altered sensorium. Ultimately, we made the decision to proceed with intubation after reviewing his ABG. He looked physically weak and was not able to keep up with the work of breathing that is body demanded. He cannot provide me with any additional elements of the history. PHYSICAL EXAMINATION: VITAL SIGNS: Afebrile, pulse 103, blood pressure 122/64, respirations 31, saturation 93% on 100% FiO2 delivered via BiPAP at 15/5. HEENT: Normocephalic, atraumatic. Sclerae are white. Conjunctivae pink. Oral mucosa is moist without lesions. GENERAL: The patient is awake and alert. He has severe respiratory distress. LUNGS: Excellent air entry. I do not appreciate a prolonged expiratory phase. Crackles are extensively present throughout bilateral lung connell. HEART: Tachycardic. Irregular. ABDOMEN: Soft, nontender, nondistended. Bowel sounds are positive. MUSCULOSKELETAL: No cyanosis or clubbing. There is 2+ pitting in the bilateral lower extremities. NEUROLOGIC: Grossly nonfocal. LABORATORY DATA: Creatinine 2.34, BUN 72. Basic metabolic profile is otherwise unremarkable. Chloride 110, bicarbonate 22. AST and ALT are down trending. Alkaline phosphatase falls within the normal limits. PH 7.2, pCO2 is 55. IMAGIN. There was extensive bilateral infiltrates, which are asymmetrically worse on the right. These have both an alveolar consolidating pattern and interstitial fullness. I do not see any overt consolidating changes. There appears to be no pleural effusions. 2. His echocardiogram demonstrates severe mitral regurgitation with a preserved ejection fraction and diastolic dysfunction. Diastolic dysfunction cannot be assessed because of the underlying abnormal rhythm. ASSESSMENT: 1. Acute hypoxic and hypercapnic respiratory failure. 2. Metabolic encephalopathy. 3. Acute diastolic and valvular heart failure. 4. Atrial fibrillation with rapid ventricular response. 5. Healthcare-associated pneumonia, on antibiotics. DISCUSSION AND PLAN: We will give the patient a couple urgent doses of Lasix. We will proceed with intubation as the patient is not able to protect his airway any longer. We will get a chest x-ray and ABG after the procedure in order to confirm placement of the endotracheal tube. This patient is critically ill. We will try to focus on good blood pressure control to minimize regurgitant flow of blood. Once he is intubated, GI may scope him without much difficulty, but at this point, I suspect he is swallowing serosanguineous, frothy sputum from suspected severe heart failure. Critical care time: 30 minutes. KATELYN
[2018-01-06 21:25] LABS: CO2 Tension 56.1 mmHg (35.0-45.0); Carboxyhemoglobin (COHb) 1.4 gm% (0.0-3.0); Hemoglobin (Hb) 8.9 g/dL (14.0-18.0); O2 Tension (PaO2) 89.1 mmHg (> 70.0)
[2018-01-06] MEDS: guaiFENesin ER 600 MG TAB PO SCH (21:31)
[2018-01-06] MEDS: Pantoprazole 40 MG VIAL IVP SCH (21:31)
[2018-01-06 21:35] LABS: pH, Arterial 7.21 (7.35-7.45)
[2018-01-06 21:37] LABS: Puncture Site LRA
[2018-01-06 21:38] LABS: ALV-art Gradient 553.775 (0-20); Puncture Site LRA; pH, Arterial 7.19 (7.35-7.45)
--- NOTE | 2018-01-06 21:44 | RAD ---
RADIOGRAPH CHEST 1 VIEW: Date: 01/06/18 Time: 8:55 p.m. HISTORY: 77-year-old male with respiratory distress. Status post intubation. COMPARISON: 01/06/18 at 8:09 a.m. FINDINGS: The previously demonstrated severe alveolar infiltrates throughout the right lung have become worse, now more dense, resulting in almost total opacification of the right hemithoracic cavity. There has b een interval insertion of an endotracheal tube with distal tip overlying the mid thoracic trachea. Th ere is also an NG tube, with distal portion below the field of view. There is left perihilar air spac e density which appears more prominent now. The periphery of the left lung appears to be grossly jessica r. There is also consolidation of the retrocardiac portion of the left lower lobe. No pneumothorax is visualized. IMPRESSION: 1. Status post intubation with endotracheal tube. 2. Nasogastric tube placement. 3. Interval worsening of severe consolidation of the entire right lung. 4. Left lower lobe consolidation and left perihilar infiltrate. [place] [] POS: KAYLYNN
--- NOTE | 2018-01-07 00:47 | OP ---
DATE OF SERVICE: 01/06/2018 SERVICE: Pulmonary Medicine. PROCEDURE: Emergent endotracheal intubation. CONSENT: Procedure was performed emergently secondary to clinical deterioration, and respiratory kenneth lure. STAFF PHYSICIAN: Wellington Gilliland M.D. MEDICATIONS: 1. Versed 2 mg IV push. 2. Etomidate 40 mg IV push. PREPROCEDURE DIAGNOSES: 1. Acute hypoxic respiratory failure. 2. Metabolic encephalopathy. 3. Hemoptysis. POSTPROCEDURE DIAGNOSES: 1. Acute hypoxic respiratory failure. 2. Metabolic encephalopathy. 3. Hemoptysis. DESCRIPTION OF PROCEDURE: Vital sign monitoring was accomplished by noninvasive hemodynamic monitori ng, pulse oximetry, and telemetry. In the supine position, the patient was preoxygenated with BiPAP at 100% FiO2 and maintained with saturations of 98%. Following induction of anesthesia, a GlideScope was inserted through the mouth offering clear identification of the posterior oropharynx and larynge al structures with a grade I view. A 7.5 Gu[place]ian endotracheal tube was visualized passing through the vocal cords. Placement was confirmed by condensation in the endotracheal tube, colorimetric capnogr aphy, and by axillary chest auscultation. The endotracheal tube was secured at 24 cm, measured at th e teeth. The patient was placed on mechanical ventilation with good return of volumes. Post-procedu re x-ray demonstrated good location for the adequate location for the endotracheal tube within the tr achea. ESTIMATED BLOOD LOSS: None from the procedure. COMPLICATIONS: None.
[2018-01-07 04:55] LABS: Anion Gap 12 mmol/L (10-20); BUN (Urea Nitrogen) 78 mg/dL (8.4-25.7); Calc. Creatinine Clearance 33 mL/min (70-130); Calcium 8.3 mg/dL (7.8-10.44); Carbon Dioxide 21 mmol/L (23-31); Chloride 112 mmol/L (98-107); Estimated GFR-MDRD 21; Glucose 122 mg/dL (83-110); Sodium 140 mmol/L (136-145)
[2018-01-07] MEDS: Piperacillin/Tazobactam 3.375 GM in Sodium Chloride 0.9% 100 ML IVPB SCH ×3 (05:11→17:02)
[2018-01-07] MEDS: Albumin 25% 25 GM/100 ML BOT IVPB SCH ×3 (05:12→17:02)
[2018-01-07 05:46] LABS: #Monocytes 0.7 thou/uL (0.11-0.59); #Neutrophils 10.2 thou/uL (1.40-6.50); %Eosinophils 0.1 % (0.0-10.0); %Lymphocytes 8.5 % (21.0-51.0); %Monocytes 5.9 % (0.0-10.0); %Neutrophils 85.4 % (42.0-75.0); Anisocytosis SLIGHT = 6-15 cells (100X) (0-5/hpf); Hemoglobin 7.5 g/dL (14.0-18.0); MDiff Complete? YES; Mean Corpuscular HGB CONC 32.2 g/dL (32.0-36.0); Mean Corpuscular Hemoglobin 32.2 pg (27.0-31.0); Mean Corpuscular Volume 99.9 fL (78.0-98.0); Mean Platelet Volume 9.2 fL (7.4-10.4); PLT Morphology Comment Appears Decreased; Platelet Count 112 thou/uL (130-400); RBC Distribution Width 15.2 % (11.5-14.5); Red Blood Cell (RBC) Count 2.34 mill/uL (4.70-6.10)
[2018-01-07] MEDS ORDERED: Furosemide 100 MG/10 ML VIAL SLOW IVP SCH (06:00)
[2018-01-07 07:14] LABS: Actual Bicarbonate (HCO3a) 23.5 mEq/L (22-28); Base Excess (BEa) -3.5 mEq/L (-2.0 to +3.0); CO2 Tension 53.4 mmHg (35.0-45.0); Calcium, Ionized 1.18 mmol/L (1.12-1.30); Carboxyhemoglobin (COHb) 2.2 gm% (0.0-3.0); Hemoglobin (Hb) 7.6 g/dL (14.0-18.0); O2 Tension (PaO2) 70.7 mmHg (> 70.0); Potassium - ABG Lab 5.14 mmol/L (3.70-5.30); pH, Arterial 7.26 (7.35-7.45)
[2018-01-07 07:21] LABS: Puncture Site L.R.
[2018-01-07] MEDS ORDERED: Midazolam HCl 2 mg/2 ml Vial ONE (08:42)
[2018-01-07] MEDS ORDERED: EPINEPHrine 1 MG/ML AMP ONE (08:43)
[2018-01-07] MEDS ORDERED: EPINEPHrine 1 MG/10 ML Abboject SYRINGE ONE (08:43)
[2018-01-07] MEDS ORDERED: Vecuronium 10 MG VIAL ONE (08:46)
--- NOTE | 2018-01-07 08:53 | PRG ---
DATE OF SERVICE: 01/07/2018 Mr. Grove was intubated last night for progressive respiratory failure, hypoxemia. He has severe resp iratory acidosis with a pH of 7.19, pCO2 of 56, pO2 89. Post-intubation with a tidal volume of 470 a nd a PEEP of 7, pressure support of 17. BUN and creatinine are 78 and 2.9. His digoxin level was 2.4. His BNP is 2502. Echo shows severe mitral regurgitation. This morning he is agitated on the vent. PHYSICAL EXAMINATION: VITAL SIGNS: Pulse 90, sats 92%, blood pressure is 90/80. CHEST: Extensive rhonchi and crackles. CARDIAC: Sinus tachycardia. ABDOMEN: Soft, no masses. LABORATORY: His white count 12,000, H&H 7 and 23, platelet count is 112, decreased. His pO2 70, pCO 2 57.26 on a rate of 17, 90%, 470 tidal volume. X-ray shows complete opacity of the right lung. IMPRESSION: 1. Respiratory failure. 2. Pulmonary hemorrhage. 3. Renal failure. 4. Gastrointestinal bleed. 5. Severe mitral regurgitation. 6. Supraventricular tachycardia. PLAN: A diagnostic bronchoscopy will be performed. Continue broad-spectrum antibiotics. Continue v ent support, nutrition, PT. He is not weanable. I spoke with the . Emergency bronchoscopy will be performed. I am sending washing for cytology, AFB smear and culture, fungal smear and culture, r outine Gram stain and C&S. Additionally, an ANCA is being ordered. This is one-half hour critical care time exclusive of the intubation.
--- NOTE | 2018-01-07 09:01 | PRG ---
DATE OF SERVICE: 01/07/2018 SUBJECTIVE: Mr. Grove is a 77-year-old white male who was admitted for upper gastrointestinal bleed, seen by the Renal Service for his acute kidney injury that was prerenal. Renal function has been slo wly improving. However, in the last 24 hours, he went into acute respiratory failure. He had to be intubated. He was deemed to be in some degree of volume overload. He is also being treated for pres umptive pneumonia. This morning, the patient is sedated and intubated. He has been deemed to be hem odynamically unstable due to the low blood pressure. OBJECTIVE: VITAL SIGNS: Blood pressure is 83/48, heart rate 91, respiratory rate 23, pulse ox 96%. GENERAL: The patient is sedated and intubated on ventilator support. SKIN: Adequate turgor. HEENT: He has slightly pale conjunctivae, anicteric sclerae. NECK: No neck mass, no carotid bruits, no JVD. CHEST: No deformities. LUNGS: Decreased breath sounds. HEART: Normal sinus rhythm. No murmur, no gallops, no rubs. ABDOMEN: Globular, soft, nontender, no masses. EXTREMITIES: No edema, no deformities. MEDICATIONS: Of 01/07/2018 was reviewed. LABORATORY DATA: Of 01/07/2018, white count 12, hemoglobin 7.5, sodium 140, potassium 5, chloride 11 2, carbon dioxide 21, BUN 78, creatinine 2.95, glucose 122, calcium 8.3. BNP is 2502. ASSESSMENT AND PLAN: 1. Acute respiratory failure - combination of pneumonia versus congestive heart failure. The patien t is currently intubated on ventilator support. Continue supportive care. 2. Anemia. Continuing daily CBC. P.r.n. blood transfusion. 3. Acute kidney injury - creatinine is fluctuating. The creatinine today is high at 2.95. Yesterda y, this was 2.34. There is most likely a component of prerenal azotemia. The patient is hemodynamic ally unstable. In addition, he has been receiving diuretics. There is no indication for any emergen t hemodialysis. Continue to optimize hemodynamics with this patient. We will continue the current s alt poor albumin infusion with this patient. Overall, prognosis remains guarded.
--- NOTE | 2018-01-07 09:11 | OP ---
DATE OF PROCEDURE: 01/07/2018 SURGEON: Dr. Bandar Nazario PROCEDURE: Diagnostic bronchoscopy. INDICATION: Pulmonary hemorrhage. PROCEDURE IN DETAIL: After informed consent with the , the flexible bronchoscope was then passed via an adapter into endotracheal tube on the vent. He was given 2 of Versed during the procedure an d 10 mg of vecuronium x1. On entering the proximal trachea copious amounts of bright red blood was s een arising from his right lung. This area was lavaged with normal saline until completely clear. E pinephrine a total of 10 mL of 1:10,000 instilled into both lungs. Bronchoscope was removed. The pa tient was given adequate ventilation, his sats were about 90%. Bronchoscope was repassed again and d istal trachea and meryl visualized which were normal, amount of blood seen in the right lung was mar kedly decreased. This area was lavaged with normal saline, a total of 50 mL. Thereafter, the entire right lung was inspected, upper, middle, and lower lobe, no endobronchial disease was seen. The lef t lung was inspected thereafter. This had a moderate amount of blood which also suctioned and lavage d until clear. The left upper and left lower lobe was thereafter visualized with no further bleeding or endobronchial disease seen. The washings were sent for cytology, AFB smear and culture, fungal s mear and culture, routine Gram stain and C&S. The patient tolerated procedure well. The patient's prognosis is guarded. I spoke to his . I a m going to discuss with Cardiology ongoing issues.
[2018-01-07] MEDS ORDERED: Lidocaine 1% (PF) 30 ML VIAL FS SCH (09:15)
[2018-01-07] MEDS ORDERED: Norepinephrine 8 MG/0.9% NS 250 ML ONE (09:27)
[2018-01-07] MEDS: Pantoprazole 40 MG VIAL IVP SCH (09:36)
[2018-01-07 10:51] VITALS: BMI 37.0
--- NOTE | 2018-01-07 11:13 | RAD ---
PORTABLE CHEST: 01/07/2018 PROVIDED CLINICAL HISTORY: Post central line placement. COMPARISON: 01/06/2018 FINDINGS: Opacification of the right hemithorax persists. Endotracheal tube and enteric catheter are again see n, in similar positions. Interval placement of right subclavian central line, the tip of which proje cts in the expected location of the cavoatrial junction. The cardiac silhouette is largely obscured. Left perihilar air space disease is somewhat more conspicuous. Left basilar pleural and/or parench ymal opacity may be present. Evaluation for pneumothorax is limited, given the supine nature of the study, without gross evidence for such. IMPRESSION: 1. Interval central line placement, as above. 2. Persistent opacification of the right hemithorax and increasing left perihilar air space disease. POS: KAYLYNN
[2018-01-07] MEDS: Digoxin 0.5 MG/2 ML AMP SLOW IVP SCH ×2 (11:26→12:49)
[2018-01-07] MEDS: Sodium Chloride 0.65% Nasal 44 ML BOT EA NARE SCH ×2 (11:27→13:28)
[2018-01-07] MEDS: guaiFENesin ER 600 MG TAB PO SCH (11:27)
[2018-01-07] MEDS: Fluticasone Propionate Nasal Spray 16 gm Bottle NASAL SCH (11:27)
[2018-01-07] MEDS ORDERED: Sodium Chloride 0.45% 1,000 ML IV SCH (11:30)
[2018-01-07] MEDS ORDERED: Sodium Bicarb 50 MEQ/50 ML Abboject 8.4% SYRINGE IVP SCH ×2 (11:30→14:45)
[2018-01-07] MEDS: Hydrocortisone Sod Succ/PF 100 mg/2 ml Vial IVP SCH ×2 (11:37→17:02)
[2018-01-07 11:38] LABS: Actual Bicarbonate (HCO3a) 18.7 mEq/L (22-28); Base Excess (BEa) -10.5 mEq/L (-2.0 to +3.0); Calcium, Ionized 1.19 mmol/L (1.12-1.30); Carboxyhemoglobin (COHb) 1.8 gm% (0.0-3.0); Hemoglobin (Hb) 8.3 g/dL (14.0-18.0); Potassium - ABG Lab 6.01 mmol/L (3.70-5.30)
[2018-01-07 11:54] LABS: CO2 Tension 60.2 mmHg (35.0-45.0); O2 Tension (PaO2) 53.3 mmHg (> 70.0); Puncture Site L.R.; pH, Arterial 7.11 (7.35-7.45)
[2018-01-07 12:11] LABS: Hemoglobin 7.5 g/dL (14.0-18.0)
[2018-01-07] MEDS ORDERED: Sodium Chloride 0.9% 250 ML IV SCH (12:45)
[2018-01-07] MEDS ORDERED: Norepinephrine 8 MG/250 ML BAG IVPB PRN (13:11)
--- NOTE | 2018-01-07 13:15 | OP ---
DATE OF PROCEDURE: 01/07/2018 PROCEDURE: Right subclavian central venous catheter placement. REQUESTED BY: Critical Care Medicine. INDICATION: Septic shock. DESCRIPTION OF PROCEDURE: Ms. Grove was placed in Trendelenburg. The right subclavian area was evaluated and prepped in the usual fashion with 2% chlorhexidine wipes. The patient was draped with full sterile procedure and precautions including gown, mask, hat and gloves were donned and the area was prepped, 1% lidocaine without epinephrine was instilled into the soft tissue. An introducer needle was introduced 18-gauge into the right subclavian vein with good blood flow. Syringe was removed. The guidewire was placed, watching for ventricular ectopy. There was no ectopy on the monitor. The patient tolerated well. Easily passed a wire. A dilator was used to dilate the soft tissues and a triple lumen catheter was placed using Seldinger technique over the wire. A 20 cm catheter, three ports it was placed at 16 cm given of the right subclavian. The wire was then removed and the catheter was sutured in place with 3 sutures. Blood was returned on all 3 ports and flushed accordingly. The site was dressed with an occlusive dressing and a Biopatch. The patient tolerated the procedure well. A followup chest x-ray demonstrates good placement of the catheter and SVC and advised the nursing staff, that was able to use. CXR with no pnx. MTDD
[2018-01-07 14:21] VITALS: BP 80/44
[2018-01-07 15:16] VITALS: TEMP 99.2
--- NOTE | 2018-01-07 19:59 | PRG ---
DATE OF SERVICE: 01/07/2018 SUBJECTIVE: A 77-year-old gentleman in spite of maximum support today on three drips Levophed, vasopressin, epinephrine, blood pressure has continued to drift downwards with a maximum BP_ 60 systolic, is unresponsive. 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 She states she wants to make him a DNR. She wants no additional treatment of medication given. For the time being, we are not going to discontinue the vent. As per the patient's family recommendation, he is going to remain a DNR right now. Comfort measures were given. We will call palliative care to see the family. The patient has, at this stage, profound shock secondary to severe mitral regurgitation, renal failure, aspiration pneumonia, GI bleed, atrial fibrillation, SVT. MTDD
--- NOTE | 2018-01-08 08:13 | PRG ---
DATE OF SERVICE: 01/07/2018 SUBJECTIVE: A 77-year-old gentleman was made a DNR in spite of being on multiple pressors, intubated , vented, and all support, he proceeded to have an asystolic event. had made him a DNR. At 164 2 hours, he was pronounced . Pupils were fixed and dilated. All pressors are being stopped. No autopsy to be performed. Primary care hospitalist will dictate a full discharge and summary. CAUSE OF : 1. Acute respiratory failure secondary to severe mitral regurgitation. 2. Pulmonary hemorrhage. 3. Gastrointestinal bleed. 4. Supraventricular tachycardia. 5. Renal failure. The body will be released to the home.
--- NOTE | 2018-01-08 09:26 | DS ---
DATE OF EXPIRATION: 01/07/2018 BRIEF HOSPITAL COURSE: The patient is a 77-year-old male with chronic atrial fibrillation on anticoa gulation, hypertension, hyperlipidemia, coronary artery disease and history of CVA in the past, prese nted to the hospital with hematemesis and hematochezia on 01/03/2018. Please refer to the history an d physical by Dr. Darius Bowles for further details. The patient was admitted to the Intensive Care Unit with a diagnosis of GI bleeding. Xarelto was dis continued. H and H was serially monitored. He was placed on IV Protonix 40 mg twice a day with IV f luids. His hemoglobin on admission was 8.4 and remained stable. The patient was evaluated by Critic al Care as well as Gastroenterology. He was later started on clear liquid diet. EGD was planned whe n his respiratory status and heart rate improves. The patient also developed acute kidney injury and was evaluated by Nephrology, Dr. Castellon. His baselin e creatinine was around 1.33 and maximum creatinine this hospitalization was 3.33. The patient was found to have extensive right-sided pneumonia requiring noninvasive positive pressure ventilation and subsequent intubation. He was placed on 3 different pressors without significant im provement. He also had bronchoscopy this a.m. The patient was eventually made DNR and on at 1642. The patient was also evaluated by Cardiology during this hospital stay due to unco ntrolled atrial fibrillation. FINAL DIAGNOSES: 1. Acute hypoxic and hypercapnic respiratory failure secondary to aspiration pneumonia/pulmonary hem orrhage. 2. Gastrointestinal bleeding. 3. Acute kidney injury on chronic kidney disease stage 3. 4. Severe mitral regurgitation. 5. Atrial fibrillation with rapid ventricular response. 6. Obesity with a BMI of 37.1. 7. History of chronic atrial fibrillation requiring anticoagulation. 8. Anemia secondary to suspected gastrointestinal blood loss/pulmonary hemorrhage status post 1 unit of PRBC. 9. Elevated troponins secondary to demand ischemia. 10. Metabolic acidosis. 11. Abnormal liver function tests. 12. Coronary artery disease. 13. History of hypertension. 14. Hyperlipidemia. 15. Coronary artery disease.
--- NOTE | 2018-01-09 16:08 | EKG ---
Test Reason : Blood Pressure : / mmHG Vent. Rate : 125 BPM Atrial Rate : 119 BPM P-R Int : 000 ms QRS Dur : 096 ms QT Int : 286 ms P-R-T Axes : 000 020 175 degrees QTc Int : 412 ms Atrial fibrillation with rapid ventricular response Minimal voltage criteria for LVH, may be normal variant Marked ST abnormality, possible lateral subendocardial injury Abnormal ECG Confirmed by EZEKIEL CORNEJO, CELIA ([id number]), science editor MINERVA KIMBLE ([id number]) on 01/09/2018 4:07:47 PM Referred By: Confirmed By:CELIA FALCON MD
[2018-01-11 17:11] LABS: Cytoplasmic (C-ANCA) <1:20 titer (Neg:<1:20); Myeloperoxidase AutoAbs <9.0 U/mL (0.0-9.0); Perinuclear (P-ANCA) <1:20 titer (Neg:<1:20); Proteinase-3 AutoAbs Less than 3.5 U/mL (0.0-3.5)
[2018-01-12 10:23] LABS: Fungus Stain Final report (.)
== END 2018-01-07 16:42 | disposition expired | DRG 981 ==
LOC: ERS 08:27 → CCU 10:24
PROVIDERS: ADMIT Family Medicine; ATTEND Family Medicine
PROC: 30233N1 Transfusion of Nonautologous Red Blood Cells into Peripheral Vein, Percutaneous Approach (ICD-10-PCS; 2018-01-04)
PROC: 0BH17EZ Insertion of Endotracheal Airway into Trachea, Via Natural or Artificial Opening (ICD-10-PCS; 2018-01-06)
PROC: 5A1935Z Respiratory Ventilation, Less than 24 Consecutive Hours (ICD-10-PCS; 2018-01-06)
PROC: 02HV33Z Insertion of Infusion Device into Superior Vena Cava, Percutaneous Approach (ICD-10-PCS; principal; 2018-01-07)
PROC: 0B9M8ZZ Drainage of Bilateral Lungs, Via Natural or Artificial Opening Endoscopic (ICD-10-PCS; 2018-01-07)
DX: D68.32 Hemorrhagic disorder due to extrinsic circulating anticoagulants (principal); J96.01 Acute respiratory failure with hypoxia; G93.41 Metabolic encephalopathy; J96.02 Acute respiratory failure with hypercapnia; J69.0 Pneumonitis due to inhalation of food and vomit; K92.2 Gastrointestinal hemorrhage, unspecified; D62 Acute posthemorrhagic anemia; N17.9 Acute kidney failure, unspecified; R04.89 Hemorrhage from other sites in respiratory passages; R04.2 Hemoptysis; I47.1 Supraventricular tachycardia; E87.2 Acidosis; K92.0 Hematemesis; Z79.01 Long term (current) use of anticoagulants; Z86.73 Personal history of transient ischemic attack (TIA), and cerebral infarction without residual deficits; E78.5 Hyperlipidemia, unspecified; I25.10 Atherosclerotic heart disease of native coronary artery without angina pectoris; Z95.1 Presence of aortocoronary bypass graft; F17.290 Nicotine dependence, other tobacco product, uncomplicated; I95.9 Hypotension, unspecified; Z66 Do not resuscitate; I05.1 Rheumatic mitral insufficiency; Z51.5 Encounter for palliative care; I48.2 Chronic atrial fibrillation; I12.9 Hypertensive chronic kidney disease with stage 1 through stage 4 chronic kidney disease, or unspecified chronic kidney disease; N18.3 Chronic kidney disease, stage 3 (moderate); E66.9 Obesity, unspecified; Z68.37 Body mass index [BMI] 37.0-37.9, adult
CPT/HCPCS: 36415; 36430; 71045; 76770; 80048; 80053; 80074; 80076; 80162; 81001; 82330; 82553; 82570; 82728; 82803; 82805; 83520; 83540; 83550; 83605; 83880; 84300; 84484; 85025; 85610; 85652; 85730; 86256; 86850; 86900; 86901; 87070; 87102; 87116; 87205; 87206; 88112; 88305; 93005; 93306; 94002; 94003; 94640; 94660; 96361; 96374; 96375; A4216; C9113; C9132; J0171; J1160; J1720; J1940; J1956; J2001; J2060; J2250; J2270; J2405; J2543; J2704; J2920; J3010; J3430; J7050; J7070; J7620; P9016; P9045; P9047; P9059